=== PATIENT | female | born 1975 | race Caucasian/White ===

== ENCOUNTER 2025-06-19 14:14 | Observation (INO) ==
--- NOTE | 2025-06-19 15:27 | Emergency Department Note ---
Impression & Plan Leg wound, left, Cellulitis, Leg pain, left ED Provider Note CHIEF COMPLAINT: Left foot infection/wound HISTORY OF PRESENTING ILLNESS: The patient is a 49-year-old female with a H cerebral palsy, venous ulcers to lower extremities, lymphedema who presents to the emergency department via EMS due to left foot pain that began last night with burning and irritation. She reports continuously being treated for cellulitis of the left lower extremity and has followed up with wound care but has not seen them for a couple of months. She states that she completed a course of Bactrim about a week ago and has been changing the dressing daily. Yesterday she noticed some burning and irritation and last night when the dressing was taken off by her he noticed maggots and drainage from the wound. She denies fever, nausea, chills, chest pain, shortness of breath, abdominal pain, recent trauma or injury, calf pain. She has had no issues with the right lower extremity. REVIEW OF SYSTEMS: See HPI for pertinent positives and pertinent negatives. ALLERGIES: NKDA MEDICATIONS: See below PAST MEDICAL HISTORY: See below PHYSICAL EXAM: VITALS: Vitals are noted on the nurses note and reviewed by myself. Vital signs stable. GENERAL: 49-year-old female, lying in bed, left leg elevated and in a dressing, in no acute distress, nondiaphoretic, well-developed well-nourished. SKIN: Capillary refill less than 2 seconds. Erythema noted on the left lower extremity from the upper bellamy down to the toes. This area does appear to be cellulitis and is draining a fluid. There are no ulcerations noted. No maggots on exam. HEENT: Normocephalic. PERRLA. EOMI. Nares patent. Mucous membranes moist. Neck is supple without nuchal rigidity. HEART: Regular rate and rhythm without murmurs gallops or rubs. LUNGS: CTA BL without wheezes, rales or rhonchi. No retractions or accessory muscle use. ABDOMEN: Positive BS x 4. Normal tympanic percussion. Soft, nontender, without masses or organomegaly. No guarding or rebound tenderness. MUSCULOSKELETAL: Left lower extremity cellulitis and drainage noted. Chronic lymphedema bilaterally. Patient is able to wiggle her toes, move her ankle, and no calf pain on exam. Right lower extremity without significant finding. NEURO: Patient was alert and oriented to person place and time. Normal sensation on exam. No focal neurological deficits. DIFFERENTIAL DIAGNOSIS: Cellulitis, wound infection, osteomyelitis, chronic lymphedema, venous insufficiency, sepsis, among others. ED COURSE AND MEDICAL DECISION MAKING: HISTORY FROM INDEPENDENT HISTORIAN: The patient herself, her , and her son. MEDICATIONS GIVEN: Denies the need for pain or symptom management, 2 g Rocephin IV, vancomycin 1750 IV MONITOR: Continuous site monitor: Order was placed for continuous site monitor. INTERPRETATION OF LABS: I interpreted the labs with full lab results as below in the lab section of this note. Pertinent lab results discussed in the MDM section below. INTERPRETATION OF IMAGING: No images were obtained. ESCALATION OF CARE CONSIDERED: Escalation of care was considered after evaluating the patient and noticing a cellulitic appearing wound/edema of the left lower extremity that is draining fluid. When the patient arrived via EMS the nursing staff noted that it appears as if the patient had not been cleaned or changed for quiet some time. Patient has not followed up with wound care in months. The patient was started on IV antibiotics here in the emergency department and was admitted for further treatment. CONSULTATIONS: On-call [facility] hospitalist - Dr. More - Presented the patient to the provider and my concerns regarding her going home. The patient did fail a course of oral antibiotics and has had worsening pain, swelling, redness, and drainage from the area. I also discussed with him my concerns regarding the patient's home care as the nursing staff reported that it appears as if she had not been showered or changed recently. The provider agreed to evaluate the patient and admit to medicine. MDM SUMMARY: I evaluated the 49-year-old female who presents to the emergency department due to a left leg wound and pain. See HPI and physical exam above. IV access was established and labs were obtained. Patient denies the need for pain or symptom management in the meantime. A wound culture was obtained of the left lower extremity and foot. The patient was started on 2 g Rocephin and 20 mg/kg vancomycin. The wound does appear to be superficial and osteomyelitis is unlikely at this time. No leukocytosis WBC 8.90. RBC 4.25. Hemoglobin hematocrit 12.6/38.5. No electrolyte abnormality. No TANNER. Lactate 1.1. Procalcitonin normal 0.03. All laboratory results thoroughly reviewed with the patient. Vitals are stable and she is afebrile. I do believe that the patient would benefit from admission for IV antibiotics as she has not seen wound care in quite some time and failed outpatient Bactrim. The patient agrees to the outlined treatment plan and all of her questions were answered. I also discussed with the hospitalist the possibility of setting up a home health aide to assist in the patient's care upon discharge. They evaluated the patient and admitted her to medicine. DIAGNOSIS: Left leg wound, cellulitis, left leg pain The chart was completed utilizing Recommend Speech voice recognition software. Grammatical errors, random word insertions, pronoun errors, and incomplete sentences are an occasional consequence of this system due to software limitations, ambient noise, and hardware issues. Any formal questions or concerns about the content, text, or information contained within the body of this dictation should be directly addressed to the provider for clarification. 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 Cerebral palsy Surgical History Hx of tubal ligation Hx of section x2 Hx laparoscopic cholecystectomy Hx of wisdom tooth extraction Social History Smoking Status: Never smoker Hx Alcohol Use: No Hx Substance Use: No Preferred Language: Turkish Communication Ability: Effective Visual Impairment: Partially Limited Family Centered Specialist Required: No Beliefs That Will Affect Care: None marital status: Single Current Living Situation: Family and Significant Other current occupational status: disabled How many Children do You have: 2 Feels Safe at Home: Yes Diet: regular caffeine: Yes Dental Care, Regularly: No Physical Activity Frequency: Does not Exercise Do you think of yourself as: straight/heterosexual Gender Identity: Female Assistive Devices: Wheelchair Allergies Allergies Allergy/AdvReac Type Severity Reaction Status Date / Time No Known Allergies Allergy Verified 06/19/25 18:17 Home Meds Home Medications Medication Instructions Recorded Confirmed cholecalciferol (vitamin D3) 125 125 mcg PO DAILY 03/03/22 06/19/25 mcg (5,000 unit) capsule atorvastatin 20 mg tablet 20 mg PO DAILY 06/19/25 06/19/25 baclofen 10 mg tablet 10 mg PO TID PRN Pain 06/19/25 06/19/25 furosemide 40 mg tablet 40 mg PO DAILY 06/19/25 06/19/25 mirabegron 50 mg tablet,extended 50 mg PO DAILY 06/19/25 06/19/25 release 24 hr potassium chloride 20 mEq 20 meq PO DAILY 06/19/25 06/19/25 tablet,extended release(part/cryst) (Klor-Con M) Results & Data (ED) Vital Signs Vital Signs - 24 hr 06/19/25 14:37 06/19/25 15:35 06/19/25 15:43 Temperature 37 C 37 C Temperature Source Oral Oral Pulse Rate 100 H 86 Pulse Rate [Left Apical] 93 H Respiratory Rate 20 17 Respiratory Effort / Characteristics Non-Labored Spontaneous Respiratory Depth Normal Respiratory Pattern Regular Blood Pressure 145/86 H Blood Pressure [Right Arm] 150/92 H Blood Pressure Mean 105 Blood Pressure Mean [Right Arm] 111 Pulse Oximetry 100 99 Oxygen Delivery Method Room Air Room Air Sepsis Recent Fever Within 48 Hours No Sepsis New/Unexplained Change in Mental Status No Sepsis Action Taken by Nursing No Action Required 06/19/25 16:06 06/19/25 17:03 06/19/25 18:15 Temperature Temperature Source Pulse Rate 94 H 89 109 H Pulse Rate [Left Apical] Respiratory Rate 23 21 23 Respiratory Effort / Characteristics Respiratory Depth Respiratory Pattern Blood Pressure 150/102 H Blood Pressure [Right Arm] Blood Pressure Mean 118 Blood Pressure Mean [Right Arm] Pulse Oximetry 98 98 99 Oxygen Delivery Method Room Air Room Air Room Air Sepsis Recent Fever Within 48 Hours Sepsis New/Unexplained Change in Mental Status Sepsis Action Taken by Nursing Laboratory Data 06/19/25 16:42 06/19/25 16:42 Lab Results 06/19/25 Range/Units 16:42 WBC 8.98 (4.8-10.8) K/ul RBC 4.25 (4.20-5.40) M/uL Hgb 12.6 (12.0-16.0) g/dl Hct 38.5 (37.0-47.0) % MCV 90.6 (80.0-100.0) fL MCH 29.6 (25.0-34.0) pg MCHC 32.7 (32.0-36.0) g/dL RDW Std Deviation 41.0 (36.4-46.3) fL RDW Coeff of Kelle 12.7 (11.5-14.5) % Plt Count 319 (130-400) K/uL MPV 10.5 (9.4-12.4) fL Immature Gran % (Auto) 0.3 % Neut % (Auto) 74.4 % Lymph % (Auto) 16.8 % [place] % (Auto) 7.1 % Eos % (Auto) 0.8 % Baso % (Auto) 0.6 % Neut # (Auto) 6.68 H (1.40-6.50) K/uL Lymph # (Auto) 1.51 (1.20-3.40) K/uL [place] # (Auto) 0.64 H (0.11-0.59) K/uL Eos # (Auto) 0.07 (0.00-0.50) K/uL Baso # (Auto) 0.05 (0.00-0.20) K/uL Immature Gran # (Auto) 0.03 (0.01-0.20) K/uL Sodium 139 (136-145) mmol/L Potassium 3.9 (3.5-5.1) mmol/L Chloride 103 (98-107) mmol/L Carbon Dioxide 26 (21-32) mmol/L Anion Gap 10 (3-11) BUN 8 (6-23) mg/dl Creatinine 0.68 (0.6-1.2) mg/dl Est Cr Clr Drug Dosing 96.9 ml/min eGFR 108.03 BUN/Creatinine Ratio 11.8 (10-20) Glucose 97 (70-99(Fasting)) mg/dl Lactate 1.1 (0.4-2.0) mmol/L Calcium 9.3 (8.6-10.3) mg/dl Total Bilirubin 0.8 (0.2-1.0) mg/dl AST 12 L (13-39) U/L ALT 13 (7-52) U/L Alkaline Phosphatase 89 (34-104) U/L Total Protein 7.9 (6.0-8.3) gm/dl Albumin 4.1 (3.4-5.0) gm/dl Globulin 3.8 (2.5-4.0) gm/dl Albumin/Globulin Ratio 1.1 (0.9-2) Procalcitonin 0.03 (0-0.5) ng/ml Administered Medications Atorvastatin Calcium (Atorvastatin 20 Mg Tab) 20 mg PO HS MIKE Stop: 07/19/25 20:59 Last Admin: 06/19/25 21:06 Dose: 20 mg Documented By: DELBERT Potassium Chloride (Potassium Chloride Crtab 20 Meq Tabcr) 20 meq PO DAILY MIKE Stop: 07/19/25 19:11 Last Admin: 06/19/25 20:59 Dose: 20 meq Documented By: DELBERT Discontinued Medications Ceftriaxone Sodium (Rocephin) 2,000 mg in 50 mls @ 100 mls/hr IV NOW STA Stop: 06/19/25 16:38 Last Infusion: 06/19/25 17:30 Dose: Infused Documented By: Admin: 06/19/25 16:56 Dose: 100 mls/hr Documented By: MARYURI Vancomycin HCl 1,750 mg/ (Sodium Chloride) 535 mls @ 200 mls/hr IV NOW ONE Stop: 06/19/25 18:49 Last Admin: 06/19/25 19:01 Dose: 200 mls/hr Documented By: DELBERT Cefazolin Sodium (Ancef 1000mg) 1,000 mg in 7.5 mls @ 2.5 mls/min IV Q8H MIKE Stop: 06/26/25 19:59 Last Admin: 06/19/25 21:06 Dose: 2.5 mls/min Documented By: DELBERT Cefazolin Sodium (Ancef 1000mg) 1,000 mg in 7.5 mls @ 2.5 mls/min IV ONE ONE; Protocol Stop: 06/19/25 21:17 Last Admin: 06/19/25 21:37 Dose: Not Given Documented By: ALLISON Ioversol (Optiray 320 125ml) 118 ml IV ONCE ONE Stop: 06/19/25 18:49 Last Admin: 06/19/25 18:53 Dose: 118 ml Documented By: [employer] Data Radiologist's Impression: Lower Extremity CT 06/19/25 18:25 EXAM: CT tib/fib RT w con CLINICAL HISTORY: R/O abscess, left leg, left foot cellulitis. TECHNIQUE: Contiguous axial CT images of the right tibia/fibula were obtained with intravenous contrast using 118 ml Optiary 320 mg/ml administered. Sagittal and coronal multiplanar reformats were acquired. One of the following dose reduction techniques were utilized for this exam: Automated exposure control, adjustment of the mA and/or kV according to patient size, and use of iterative reconstruction. COMPARISON: No prior studies available for comparison. FINDINGS: Bones: There is diffuse osseous demineralization. Normal alignment of the femur, tibia, and fibula, as well as the visualized ankle. No fractures or dislocations. High-riding patella with Insall-Salvati ratio of 1.5. Bony exostosis is seen in the medial femoral epicondyle. No suspicious lytic or sclerotic lesions. Joints and Articular Surfaces: There is narrowing of the medial femorotibial compartment more than the lateral compartment, with subchondral sclerosis of the medial and lateral tibial plateaus. No erosions, joint effusions, or abnormal enhancement. Soft Tissues: There is soft tissue swelling in the distal leg to the ankle joint, most significant in the anterior and lateral aspects with associated cutaneous and superficial fascial thickening. No evidence of enhancing abscess collection. Tendons and Ligaments: Intact and grossly unremarkable normal appearance of the tendons and ligaments. No evidence of significant tendinopathy or ligamentous injury. Muscles: There is diffuse fatty atrophy of the visualized musculature. Neurovascular Structures: Normal appearance and enhancement of the visualized neurovascular structures. No evidence of compression or abnormal enhancement. IMPRESSION: 1. Soft tissue swelling involving the soft tissues of the distal leg to the ankle joint, most significantly affecting the anterior and lateral aspects. No evidence of enhancing abscess collection. 2. Osteopenia. No evidence of acute fracture or dislocation. 3. Patella graciela. 4. Diffuse fatty atrophy of the visualized musculature. Electronically signed by Faraz Jones 06-19-2025 8:59 PM Aorta w/Runoff CTA 06/19/25 18:26 EXAM: CT ang AA runof w cally charles CLINICAL HISTORY: r/o PVD TECHNIQUE: CT angiography of the abdomen and pelvis was performed with and without intravenous contrast using with the following protocol: axial images, and reconstructed coronal and sagittal images. Non-contrast images were initially acquired, followed by contrast-enhanced images in arterial and venous phases. Intravenous contrast, 118 cc Optiray 320, was administered using automated injection techniques. Bolus tracking was employed to optimize arterial phase imaging. For CTA's we need the post-processing techniques that constitute a CTA study. Physicians must state in their dictation:"One of these 3D techniques was utilized: Maximum Intensity Pixel (MIP), 3D Reconstructed Images, Volume Rendered Images, Surface Shaded Rendering. "One of the following dose reduction techniques was utilized for this exam: Automated exposure control, adjustment of the mA and/or kV according to patient size, and use of iterative reconstruction." COMPARISON: No prior studies available for comparison FINDINGS: Abdominal Aorta: The abdominal aorta is normal in caliber, with no evidence of aneurysm, dissection, or significant atherosclerotic disease. Celiac Artery and Branches: The celiac artery and its branches (left gastric artery, splenic artery, common hepatic artery) are patent without stenosis or aneurysm. Superior Mesenteric Artery (SMA): The SMA is patent, with normal origin and course. No evidence of stenosis, aneurysm, or dissection. Renal Arteries: Both renal arteries are patent with no evidence of stenosis, occlusion, or aneurysm. Normal enhancement of renal parenchyma. Inferior Mesenteric Artery (LIUS): The LUIS is patent with no evidence of stenosis or occlusion. Pelvic Arteries: The iliac arteries (common, internal, and external) are patent bilaterally without evidence of stenosis, occlusion, or aneurysm. Small calcified plaques in the bilateral common and internal iliac arteries without significant stenosis. Lower Extremity Arteries: The bilateral common femoral, deep and superior femoral, popliteal, peroneal, tibial and dorsalis pedis arteries are normally opacified. Other Abdominal and Pelvic Vessels: The portal vein, splenic vein, and superior mesenteric vein are patent with normal enhancement. [Describe any abnormalities, such as thrombosis or varices.] Solid Organs: Liver: Normal in size and shape, with decreased density likely steatosis. Small cyst in the dome of the right lobe. Normal enhancement pattern. Gallbladder and Biliary System: The Gallbladder is not seen. Bile ducts are normal in caliber. Pancreas: Normal in size and density. No masses or cysts. Normal enhancement. Spleen: Normal in size and density. No focal lesions. Normal enhancement. Kidneys and Adrenal Glands: Normal in size and shape. No renal masses or hydronephrosis. Adrenal glands are unremarkable. Normal enhancement. Bowel: No evidence of bowel obstruction or significant bowel wall thickening. No abnormal enhancement. Peritoneal and Retroperitoneal Structures: No free fluid or abnormal fluid collections were identified within the abdomen or pelvis. No lymphadenopathy was noted. Uterus is unremarkable. A 3.0 x 3.8 cm left adnexal cyst. A small rim-enhancing cyst in the right ovary, likely a corpus luteum. Bones and Soft Tissues: No fractures or abnormal masses were identified. Subcutaneous edema in the bilateral ankles and feet with increased vascularities. Mild subcutaneous fat-stranding in the bilateral popliteal regions. IMPRESSION: No evidence of peripheral arterial occlusive diease in this CT study. Subcutaneous edema in the bilateral ankle and feet, with increased vascularities, suggest cellulitis. Mild subcutaneous fat-stranding in the bilateral popliteal regions. Other findings include hepatic steatosis with tiny cyst, and a 3.0 x 3.8 cm left adnexal cyst, likely ovarian. Electronically signed by Faraz Jones 06-19-2025 8:[address] 06/19/25 18:26 EXAM: CT foot LT w con CLINICAL HISTORY: Rule out abscess, osteomyelitis TECHNIQUE: CT scan of the left foot was performed with the administration of intravenous contrast 118 cc optiray 320 mg/ml was given as contrast. Axial images were obtained, with coronal and sagittal reformatted images reviewed. One of the following dose reduction techniques was utilized for this exam. Automated exposure control, adjustment of the mA and/or kV according to patient size, and use of iterative reconstruction. COMPARISON: None. FINDINGS: Soft Tissues: Extensive soft tissue edematous changes in form of subcutaneous fluid collection and fat stranding involving the visualized left lower leg, ankle and dorsum of foot. Skin thickening with irregularity is seen over the dorsum of foot. Bones: Ill-defined patchy lucencies in multiple tarsal bones with thinning of cortical margins and lucencies involving third to fifth heads of metatarsals, with few areas of patchy lucencies in the heads of first and second metatarsals, highly concerning for infection. Joints: Moderate intertarsal osteoarthritic changes. Additional Findings: No other significant findings are noted. IMPRESSION: 1. Ill-defined patchy lucencies in multiple tarsal bones with thinning of cortical margins and lucencies involving third to fifth heads of metatarsals, with few areas of patchy lucencies in the heads of first and second metatarsals, highly concerning for infection-osteomyelitis. 2. Extensive soft tissue edematous changes in form of subcutaneous fluid collection and fat stranding involving the visualized left lower leg, ankle and dorsum of foot. 3. Skin thickening with irregularity over the dorsum of foot. The above findings represent acute infectious etiology. No definite peripherally enhancing abscess detected at present study 4. Recommended contrast-enhanced MR examination for better evaluation Electronically signed by Faraz Jones 06-19-2025 9:05 PM Discharge Plan Visit Data Chief Complaint: Infection, Wound Stated Complaint: L foot ED Provider: Jayce Payne ED Midlevel Provider: Albertina Aceves Discharge Problem: Leg wound, left, Cellulitis, Leg pain, left Patient Disposition: Admitted As Inpatient Condition: Fair Discharge Instructions Interventions: ED Discharge Assessment Last Done: 06/19/25 19:12 Discharge Problem: Leg wound, left Qualifiers: Encounter type: initial encounter Qualified Code(s): S81.802A - Unspecified open wound, left lower leg, initial encounter Cellulitis Qualifiers: Site of cellulitis: extremity Site of cellulitis of extremity: lower extremity Laterality: left Qualified Code(s): L03.116 - Cellulitis of left lower limb
[2025-06-19] MEDS ORDERED: VANCOMYCIN CONSULT ACTIVE PRN (16:09)
[2025-06-19] MEDS: cefTRIAXone SODIUM 2,000 MG/50 ML BAG IV STA (16:56)
[2025-06-19 17:08] LABS: Hematocrit (blood only) 38.5 % (37.0-47.0); Hemoglobin 12.6 g/dl (12.0-16.0); Immature Granulocytes # (auto) 0.03 K/uL (0.01-0.20); Immature Granulocytes % (auto) 0.3 %; Mean Corpuscular Hemoglobin 29.6 pg (25.0-34.0); Mean Corpuscular Volume 90.6 fL (80.0-100.0); Platelet Count 319 K/uL (130-400); RDW Standard Deviation 41.0 fL (36.4-46.3); Red Blood Count 4.25 M/uL (4.20-5.40); White Blood Count 8.98 K/ul (4.8-10.8)
[2025-06-19 17:24] LABS: Alanine Aminotransferase 13.0 U/L (7-52); Albumin Globulin Ratio 1.1 (0.9-2); Alkaline Phosphatase 89.0 U/L (34-104); Anion Gap 10.0 (3-11); Bilirubin,Total 0.8 mg/dl (0.2-1.0); Blood Urea Nitrogen 8.0 mg/dl (6-23); Calcium 9.3 mg/dl (8.6-10.3); Carbon Dioxide 26.0 mmol/L (21-32); Chloride 103.0 mmol/L (98-107); Creatinine Clr Calc Pharmacy 96.9 ml/min; Globulin 3.8 gm/dl (2.5-4.0); Glucose 97.0 mg/dl (70-99(Fasting)); Potassium 3.9 mmol/L (3.5-5.1); Sodium 139.0 mmol/L (136-145); Total Protein 7.9 gm/dl (6.0-8.3)
--- NOTE | 2025-06-19 18:48 | History & Physical Report ---
Date of Service June 19, 2025 Assessment & Plan (1) Left leg cellulitis: (2) Venous ulcers of both lower extremities: (3) Cerebral palsy: (4) Leg wound, left: Plan Krystle is a 49 yo woman with PMH of chronic lypmphadema, MS, cerebral palsy, hypokalemia, lyme disease. she's been following with wound care for her lymphedema and s/p debridement in office in April. she was recommended f/u with Dr Ulloa for left GSV reflux. in addition, she's on injection for her MS. she's took bactrim for her left foot infection one weeks ago and continue to get worse. since 24-48 hours, her wound continue to get worse and came here for evaluation on physical exam, she's has significant swelling, erythema on the left leg into the knee, she s/p ceftriaxone and plan for IV cefazolin and IV vancomycin she will need inpatient wound care evaluation and she s/p CT leg and CT foot to r/o underlying abscess or osteomyelitis. 1. acute left leg and left foot cellulitis 2. chronic lymphedema 3. acute maggot infection of left foot 4. hx of MS, wheelchair bound since 4-5 years ago 5. cerebral palsy 6. chronic hypokalemia 7. hx of lyme disease 8. ovarian cysts 1. acute left leg and left foot cellulitis f/u on CT leg and CT foot, CTA to r/o PAD cefaozlin and vancomycin. 2. chronic lymphadema plan for IV bumex while she's here. wound care eval for dressing choice 3. acute maggot infection of left foot wound care evaluation 4. hx of MS, she's see Dr. Sanaz Tam at [facility] ocrelizudcb she's on baclofen 10mg TID was recommended vitaminD supplement. 5. chronic hypokalemia, kcl daily 6. recurrent UTI, she's on mybrtriq 50mg ER daily 7. HLD, lipitor 20mg qHS History of Present Illness Chief Complaint: left foot, left leg cellulitis , worsening since 24 hours ago taken bactrim for 6-7 days noticed maggot growing on the left foot Primary Care Provider: Blake Shah MD Krystle Scott is a 49 yo woman with PMH of lymphadema, MS, cerebral palsy, chronic spasticity, hypokalemia. lyme disease She follow with Dr. Sanaz Tam at [facility] for her MS, and on ocrelizumab every 6 months. however, she's been bedbound since 5 years ago she's was following with our wound care clinics for her venous ulcer. and in april, s/p debridement, at that time, leg was dressed with visco paste kerlix and 2 layer tubigrip and aquacel ag to open ulceration. per progress note, she's has reflux studies completed and thos show left GSV amenable to ablation. since one week ago, she's been startede bactrim for her foot infection but no improvement. she's started noticing oozing discharge and worsening erythema and swelling to her left foot. she's was started by ED and s/p IV ceftriaxone. also concern about maggot coming out from her left foot. she will need inpatient admission for IV cefazolin, wound care. Allergies Allergy/AdvReac Type Severity Reaction Status Date / Time No Known Allergies Allergy Verified 06/19/25 18:17 Home Medications Medication Instructions Recorded Confirmed Type cholecalciferol (vitamin D3) 125 125 mcg PO DAILY 03/03/22 06/19/25 History mcg (5,000 unit) capsule atorvastatin 20 mg tablet 20 mg PO DAILY 06/19/25 06/19/25 History baclofen 10 mg tablet 10 mg PO TID PRN Pain 06/19/25 06/19/25 History furosemide 40 mg tablet 40 mg PO DAILY 06/19/25 06/19/25 History mirabegron 50 mg tablet,extended 50 mg PO DAILY 06/19/25 06/19/25 History release 24 hr potassium chloride 20 mEq 20 meq PO DAILY 06/19/25 06/19/25 History tablet,extended release(part/cryst) (Klor-Con M) Past Med/Surg History Problem List (Updated 06/19/25 @ 18:48 by Celina More DO) Left leg cellulitis Leg pain, left (Acute) Cellulitis (Acute) Leg wound, left (Acute) Lymphedema (Chronic) Venous ulcers of both lower extremities (Acute) Cerebral palsy (Chronic) Blind right eye (Chronic) [place] teeth extracted (Chronic) S/P tubal ligation (Chronic) S/P endometrial ablation (Chronic) S/P cholecystectomy (Chronic) Knee pain (Acute) Medical History Edema, unspecified Multiple sclerosis, primary chronic progressive Elevated liver enzymes Hypokalemia Hypertension 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 Cerebral palsy Surgical History Hx of tubal ligation Hx of section x2 Hx laparoscopic cholecystectomy Hx of wisdom tooth extraction Social History Smoking Status: Never smoker Hx Alcohol Use: No Hx Substance Use: No Preferred Language: Burmese Communication Ability: Effective Visual Impairment: Partially Limited Overage Shortage And Damage Clerk Required: No Beliefs That Will Affect Care: None marital status: Single Current Living Situation: Family and Significant Other current occupational status: disabled How many Children do You have: 2 Feels Safe at Home: Yes Diet: regular caffeine: Yes Dental Care, Regularly: No Physical Activity Frequency: Does not Exercise Do you think of yourself as: straight/heterosexual Gender Identity: Female Assistive Devices: Wheelchair Review of Systems Review of Systems: Constitutional: No Weight Change, No Fever, No Chills, No Night Sweats, No Fatigue, No Malaise Cardiovascular: No Chest Pain, No SOB, No PND, No Dyspnea on Exertion, No Orthopnea, No Claudication, No Palpitations Respiratory: No Cough, No Sputum, No Wheezing, No Smoke Exposure, No Dyspnea Gastrointestinal: No Nausea, No Vomiting, No Diarrhea, No Constipation, No Pain, No Heartburn, No Anorexia, No Dysphagia, No Hematochezia, No Melena, Genitourinary: + for recurrent UTI Musculoskeletal: + for chronic lymphadema; + for left foot infection Skin: + for erythema Neuro: + for MS; + for chronic spasticity; + for wheelchair bound. Psych: No Anxiety/Panic, No Depression, No Insomnia, No Personality Changes, No Delusions, No Rumination, No SI/HI/AH/VH, No Social Issues, No Memory Changes, No Violence/Abuse Hx., No Eating Concerns Endocrine: No Polyuria, No Polydipsia, No Temperature Intolerance Physical Exam Physical Exam: VITALS: Reviewed. WEIGHT/BMI reviewed. GEN: chronically ill -Head: NC/AT; NECK: Supple, with no masses. CV: RRR, no m/r/g. LUNGS: CTAB, no w/r/c. ABD: Soft, NT/ND, NBS, no masses or organomegaly. : N/A SKIN: + for erythmea in the left leg and left foot; + for swelling; no discharge appreciated; non-tender MSK: + for chronic lymphedema of both leg EXT: + for edema NEURO: AAOx3 . Results & Data Results & Data Vital Signs (Past 12 Hours) Vital Signs Temp Pulse Pulse Resp BP BP Pulse Ox 06/19/25 17:03 89 21 98 06/19/25 16:06 94 H 23 150/102 H 98 06/19/25 15:43 86 06/19/25 15:35 37 C 93 H 17 150/92 H 99 06/19/25 14:37 37 C 100 H 20 145/86 H 100 O2 Del Method 06/19/25 17:03 Room Air 06/19/25 16:06 Room Air 06/19/25 15:43 06/19/25 15:35 Room Air 06/19/25 14:37 Room Air Laboratory Results Laboratory Results - last 72 hr 06/19/25 16:42 WBC 8.98 RBC 4.25 Hgb 12.6 Hct 38.5 MCV 90.6 MCH 29.6 MCHC 32.7 RDW Std Deviation 41.0 RDW Coeff of Kelle 12.7 Plt Count 319 MPV 10.5 Immature Gran % (Auto) 0.3 Neut % (Auto) 74.4 Lymph % (Auto) 16.8 [place] % (Auto) 7.1 Eos % (Auto) 0.8 Baso % (Auto) 0.6 Neut # (Auto) 6.68 H Lymph # (Auto) 1.51 [place] # (Auto) 0.64 H Eos # (Auto) 0.07 Baso # (Auto) 0.05 Immature Gran # (Auto) 0.03 Sodium 139 Potassium 3.9 Chloride 103 Carbon Dioxide 26 Anion Gap 10 BUN 8 Creatinine 0.68 Est Cr Clr Drug Dosing 96.9 eGFR 108.03 BUN/Creatinine Ratio 11.8 Glucose 97 Lactate 1.1 Calcium 9.3 Total Bilirubin 0.8 AST 12 L ALT 13 Alkaline Phosphatase 89 Total Protein 7.9 Albumin 4.1 Globulin 3.8 Albumin/Globulin Ratio 1.1 Procalcitonin 0.03 Medications Administered Current Inpatient Medications Enoxaparin Sodium (Enoxaparin Inj 40 Mg/0.4 Ml Syr) 40 mg SQ QAM MIKE Stop: 07/20/25 08:59 Vancomycin HCl 1,750 mg/ (Sodium Chloride) 535 mls @ 200 mls/hr IV NOW ONE Stop: 06/19/25 18:49 Cefazolin Sodium (Ancef 1000mg) 1,000 mg in 7.5 mls @ 2.5 mls/min IV Q8H IMKE Stop: 06/26/25 18:29 Miscellaneous Information (Vancomycin Consult Active) 1 each N/A UD PRN PRN Reason: Consult Stop: 07/19/25 16:08 PG Care Time/CCT Total # of Minutes Spent Total Time Spent with Patient: Total time spent is greater than 50% in coordination of care (as documented) at patient's floor/unit and/or counseling patient: Coding Level of Care Code 87386 INT INP/OBS CARE 2/55MIN Diagnoses Left leg cellulitis L03.116 Venous ulcers of both lower extremities I83.019; I83.029; L97.919; L97.929 Cerebral palsy G80.9 Leg wound, left S81.802A Encounter type: initial encounter Time Spent (min) 55 (4) Leg wound, left Encounter type: initial encounter Qualified Code(s): S81.802A - Unspecified open wound, left lower leg, initial encounter
[2025-06-19] MEDS: OPTIRAY 320 125ml IV ONE (18:53)
[2025-06-19] MEDS: VANCOMYCIN HCL 1,750 MG in SODIUM CHLORIDE 0.9% 500 ML IV ONE (19:01)
--- NOTE | 2025-06-19 20:43 | CT Scan Report ---
EXAM: CT ang RONEY tru charles CLINICAL HISTORY: r/o PVD TECHNIQUE: CT angiography of the abdomen and pelvis was performed with and without intravenous contrast using with the following protocol: axial images, and reconstructed coronal and sagittal images. Non-contrast images were initially acquired, followed by contrast-enhanced images in arterial and venous phases. Intravenous contrast, 118 cc Optiray 320, was administered using automated injection techniques. Bolus tracking was employed to optimize arterial phase imaging. For CTA's we need the post-processing techniques that constitute a CTA study. Physicians must state in their dictation:"One of these 3D techniques was utilized: Maximum Intensity Pixel (MIP), 3D Reconstructed Images, Volume Rendered Images, Surface Shaded Rendering. "One of the following dose reduction techniques was utilized for this exam: Automated exposure control, adjustment of the mA and/or kV according to patient size, and use of iterative reconstruction." COMPARISON: No prior studies available for comparison FINDINGS: Abdominal Aorta: The abdominal aorta is normal in caliber, with no evidence of aneurysm, dissection, or significant atherosclerotic disease. Celiac Artery and Branches: The celiac artery and its branches (left gastric artery, splenic artery, common hepatic artery) are patent without stenosis or aneurysm. Superior Mesenteric Artery (SMA): The SMA is patent, with normal origin and course. No evidence of stenosis, aneurysm, or dissection. Renal Arteries: Both renal arteries are patent with no evidence of stenosis, occlusion, or aneurysm. Normal enhancement of renal parenchyma. Inferior Mesenteric Artery (LUIS): The LUIS is patent with no evidence of stenosis or occlusion. Pelvic Arteries: The iliac arteries (common, internal, and external) are patent bilaterally without evidence of stenosis, occlusion, or aneurysm. Small calcified plaques in the bilateral common and internal iliac arteries without significant stenosis. Lower Extremity Arteries: The bilateral common femoral, deep and superior femoral, popliteal, peroneal, tibial and dorsalis pedis arteries are normally opacified. Other Abdominal and Pelvic Vessels: The portal vein, splenic vein, and superior mesenteric vein are patent with normal enhancement. [Describe any abnormalities, such as thrombosis or varices.] Solid Organs: Liver: Normal in size and shape, with decreased density likely steatosis. Small cyst in the dome of the right lobe. Normal enhancement pattern. Gallbladder and Biliary System: The Gallbladder is not seen. Bile ducts are normal in caliber. Pancreas: Normal in size and density. No masses or cysts. Normal enhancement. Spleen: Normal in size and density. No focal lesions. Normal enhancement. Kidneys and Adrenal Glands: Normal in size and shape. No renal masses or hydronephrosis. Adrenal glands are unremarkable. Normal enhancement. Bowel: No evidence of bowel obstruction or significant bowel wall thickening. No abnormal enhancement. Peritoneal and Retroperitoneal Structures: No free fluid or abnormal fluid collections were identified within the abdomen or pelvis. No lymphadenopathy was noted. Uterus is unremarkable. A 3.0 x 3.8 cm left adnexal cyst. A small rim-enhancing cyst in the right ovary, likely a corpus luteum. Bones and Soft Tissues: No fractures or abnormal masses were identified. Subcutaneous edema in the bilateral ankles and feet with increased vascularities. Mild subcutaneous fat-stranding in the bilateral popliteal regions. IMPRESSION: No evidence of peripheral arterial occlusive diease in this CT study. Subcutaneous edema in the bilateral ankle and feet, with increased vascularities, suggest cellulitis. Mild subcutaneous fat-stranding in the bilateral popliteal regions. Other findings include hepatic steatosis with tiny cyst, and a 3.0 x 3.8 cm left adnexal cyst, likely ovarian. Electronically signed by Faraz Jones 06-19-2025 8:42 PM
[2025-06-19] MEDS: POTASSIUM CHLORIDE CRTAB 20 MEQ TABCR PO SCH (20:59)
--- NOTE | 2025-06-19 20:59 | CT Scan Report ---
EXAM: CT tib/fib RT w con CLINICAL HISTORY: R/O abscess, left leg, left foot cellulitis. TECHNIQUE: Contiguous axial CT images of the right tibia/fibula were obtained with intravenous contrast using 118 ml Optiary 320 mg/ml administered. Sagittal and coronal multiplanar reformats were acquired. One of the following dose reduction techniques were utilized for this exam: Automated exposure control, adjustment of the mA and/or kV according to patient size, and use of iterative reconstruction. COMPARISON: No prior studies available for comparison. FINDINGS: Bones: There is diffuse osseous demineralization. Normal alignment of the femur, tibia, and fibula, as well as the visualized ankle. No fractures or dislocations. High-riding patella with Insall-Salvati ratio of 1.5. Bony exostosis is seen in the medial femoral epicondyle. No suspicious lytic or sclerotic lesions. Joints and Articular Surfaces: There is narrowing of the medial femorotibial compartment more than the lateral compartment, with subchondral sclerosis of the medial and lateral tibial plateaus. No erosions, joint effusions, or abnormal enhancement. Soft Tissues: There is soft tissue swelling in the distal leg to the ankle joint, most significant in the anterior and lateral aspects with associated cutaneous and superficial fascial thickening. No evidence of enhancing abscess collection. Tendons and Ligaments: Intact and grossly unremarkable normal appearance of the tendons and ligaments. No evidence of significant tendinopathy or ligamentous injury. Muscles: There is diffuse fatty atrophy of the visualized musculature. Neurovascular Structures: Normal appearance and enhancement of the visualized neurovascular structures. No evidence of compression or abnormal enhancement. IMPRESSION: 1. Soft tissue swelling involving the soft tissues of the distal leg to the ankle joint, most significantly affecting the anterior and lateral aspects. No evidence of enhancing abscess collection. 2. Osteopenia. No evidence of acute fracture or dislocation. 3. Patella graciela. 4. Diffuse fatty atrophy of the visualized musculature. Electronically signed by Faraz Jones 06-19-2025 8:59 PM
[2025-06-19] MEDS: ATORVASTATIN 20 MG TAB PO SCH (21:06)
--- NOTE | 2025-06-19 21:06 | CT Scan Report ---
EXAM: CT foot LT w con CLINICAL HISTORY: Rule out abscess, osteomyelitis TECHNIQUE: CT scan of the left foot was performed with the administration of intravenous contrast 118 cc optiray 320 mg/ml was given as contrast. Axial images were obtained, with coronal and sagittal reformatted images reviewed. One of the following dose reduction techniques was utilized for this exam. Automated exposure control, adjustment of the mA and/or kV according to patient size, and use of iterative reconstruction. COMPARISON: None. FINDINGS: Soft Tissues: Extensive soft tissue edematous changes in form of subcutaneous fluid collection and fat stranding involving the visualized left lower leg, ankle and dorsum of foot. Skin thickening with irregularity is seen over the dorsum of foot. Bones: Ill-defined patchy lucencies in multiple tarsal bones with thinning of cortical margins and lucencies involving third to fifth heads of metatarsals, with few areas of patchy lucencies in the heads of first and second metatarsals, highly concerning for infection. Joints: Moderate intertarsal osteoarthritic changes. Additional Findings: No other significant findings are noted. IMPRESSION: 1. Ill-defined patchy lucencies in multiple tarsal bones with thinning of cortical margins and lucencies involving third to fifth heads of metatarsals, with few areas of patchy lucencies in the heads of first and second metatarsals, highly concerning for infection-osteomyelitis. 2. Extensive soft tissue edematous changes in form of subcutaneous fluid collection and fat stranding involving the visualized left lower leg, ankle and dorsum of foot. 3. Skin thickening with irregularity over the dorsum of foot. The above findings represent acute infectious etiology. No definite peripherally enhancing abscess detected at present study 4. Recommended contrast-enhanced MR examination for better evaluation Electronically signed by Faraz Jones 06-19-2025 9:05 PM
--- NOTE | 2025-06-19 23:03 | Nuclear Medicine Report ---
Exam(s): NM VQ EXAM: NM Lung Perfusion Scan CLINICAL HISTORY: Reason for exam: tachycardia. TECHNIQUE: Nuclear Medicine perfusion images of the lungs were obtained in multiple projections following injection of Tc99m MAA. COMPARISON: CT angiogram and runoff from 06/19/2025 FINDINGS: Perfusion: Unremarkable. No peripheral wedge-shaped perfusion defects are seen to suggest pulmonary embolism. IMPRESSION: No peripheral wedge-shaped perfusion defects are seen to suggest pulmonary embolism. Electronically signed by: Neil Patterson MD 06/19/25 23:01 PM
[2025-06-20] MEDS: BACLOFEN 10 MG TAB PO PRN (03:27)
[2025-06-20 07:54] LABS: Hematocrit (blood only) 34.1 % (37.0-47.0); Hemoglobin 11.2 g/dl (12.0-16.0); Mean Corpuscular Hemoglobin 29.9 pg (25.0-34.0); Mean Corpuscular Volume 90.9 fL (80.0-100.0); Platelet Count 298 K/uL (130-400); RDW Standard Deviation 40.9 fL (36.4-46.3); Red Blood Count 3.75 M/uL (4.20-5.40); White Blood Count 8.90 K/ul (4.8-10.8)
[2025-06-20 08:15] LABS: Alanine Aminotransferase 9.0 U/L (7-52); Albumin Globulin Ratio 1.1 (0.9-2); Alkaline Phosphatase 74.0 U/L (34-104); Anion Gap 7.0 (3-11); Bilirubin,Total 0.5 mg/dl (0.2-1.0); Blood Urea Nitrogen 6.0 mg/dl (6-23); Calcium 8.3 mg/dl (8.6-10.3); Carbon Dioxide 25.0 mmol/L (21-32); Chloride 107.0 mmol/L (98-107); Creatinine Clr Calc Pharmacy 103.9 ml/min; Globulin 3.0 gm/dl (2.5-4.0); Glucose 99.0 mg/dl (70-99(Fasting)); Potassium 3.9 mmol/L (3.5-5.1); Sodium 139.0 mmol/L (136-145); Total Protein 6.4 gm/dl (6.0-8.3)
[2025-06-20] MEDS: CHOLECALCIFEROL 125 MCG (5,000 UNITS) TAB PO SCH (09:41)
[2025-06-20] MEDS: ENOXAPARIN INJ 40 MG/0.4 ML SYR SQ SCH (09:41)
[2025-06-20] MEDS: VIBEGRON 75 MG TAB PO SCH (09:48)
--- NOTE | 2025-06-20 09:53 | Hospitalist Progress Note ---
Date of Service June 20, 2025 Assessment & Plan (1) Left leg cellulitis: (2) Venous ulcers of both lower extremities: (3) Cerebral palsy: (4) Leg wound, left: Plan Krystle Scott is a 49 yo woman with PMH of chronic lymphedema, MS (on injection), cerebral palsy, hypokalemia, lyme disease. she's been following with wound care for her lymphedema and s/p debridement in April. she was recommended f/u with Dr Ulloa for left GSV reflux. she's took bactrim for her left foot infection one weeks ago and continue to get worse. since 24-48 hours, her wound continue to get worse and went to ED on 06/19/2025 on physical exam, she's has significant swelling, erythema on the left leg into the knee, she s/p ceftriaxone and plan for IV cefazolin and IV vancomycin. her CT leg concern for osteomyelitis. CTA negative for PVD. she was started on cefazolin and vancomycin 1. acute left leg and left foot cellulitis 2. chronic lymphedema 3. acute maggot infection of left foot 4. hx of MS, wheelchair bound since 4-5 years ago 5. cerebral palsy 6. chronic hypokalemia 7. hx of lyme disease 8. ovarian cysts 1. acute left leg and left foot cellulitis CT sheppard concern for left foot osteomyelitis plan for MRI left foot ID and podiatry consulted cefaozlin and vancomycin. 2. chronic lymphadema plan for IV diuretics while she's here. wound care eval for dressing choice 3. acute maggot infection of left foot wound care evaluation 4. hx of MS, following neurologist, Dr. Sanaz Tam at [facility] ocrelizumab q6 months. she's on baclofen 10mg TID 5. chronic hypokalemia, kcl daily 6. recurrent UTI, she's on mybrtriq 50mg ER daily 7. HLD, lipitor 20mg qHS Admission and Anticipated Discharge Date Admission Date: June 19, 2025 Subjective she's been on cefazolin and vancomycin. her CT left leg concern for osteomyelitis ID, and podiatry consulted, plan for foot MRI no other distress. low standing lymphedema she is AAox3; and able to respond appropriate to question. Review of Systems Review of Systems: Constitutional: No Weight Change, No Fever, No Chills, No Night Sweats, No Fatigue, No Malaise Cardiovascular: No Chest Pain, No SOB, No PND, No Dyspnea on Exertion, No Orthopnea, No Claudication, No Edema, No Palpitations Respiratory: No Cough, No Sputum, No Wheezing, , No Dyspnea Gastrointestinal: No Nausea, No Vomiting, No Pain, No Heartburn, No Anorexia, No Dysphagia, No Hematochezia, No Melena Genitourinary: recurrent UTI. Musculoskeletal: + for lymphedema; + for left foot cellulitis. Neuro: + for MS; + for cerebral palsy; + for long staning leg weakness; spasticity; Psych: No Anxiety/Panic, No Depression, No Insomnia, No Personality Changes, No Delusions, No Rumination, Heme/Lymph: No Bruising, No Bleeding, No Transfusions History, No Lymphadenopathy Endocrine: no hx of diabetes. Physical Exam Physical Exam: VITALS: Reviewed. WEIGHT/BMI reviewed. GEN: chronically ill appearing. -Head: NC/AT; NECK: Supple, with no masses. CV: RRR, no m/r/g. LUNGS: CTAB, no w/r/c. ABD: Soft, NT/ND, NBS, no masses or organomegaly. : N/A SKIN: + for erythema; + for swelling; no bleeding. MSK: + for lymphadema NEURO: AAOx3. Results & Data Results & Data Vital Signs (Past 12 Hours) Vital Signs Temp Pulse Pulse Resp BP BP Pulse Ox 06/20/25 07:04 36.8 C 105 H 23 124/78 93 06/20/25 05:20 114 H 06/20/25 03:08 37.5 C 114 H 18 138/89 94 06/20/25 02:33 118 H 18 147/91 H 95 06/20/25 02:20 116 H 16 147/91 H 95 06/19/25 23:30 102 H 18 140/83 98 06/19/25 22:59 102 H O2 Del Method 06/20/25 07:04 Room Air 06/20/25 05:20 06/20/25 03:08 Room Air 06/20/25 02:33 Room Air 06/20/25 02:20 Room Air 06/19/25 23:30 Room Air 06/19/25 22:59 Laboratory Results Laboratory Results - last 72 hr 06/19/25 06/19/25 06/20/25 16:42 19:03 07:18 WBC 8.98 8.90 RBC 4.25 3.75 L Hgb 12.6 11.2 L Hct 38.5 34.1 L MCV 90.6 90.9 MCH 29.6 29.9 MCHC 32.7 32.8 RDW Std Deviation 41.0 40.9 RDW Coeff of Kelle 12.7 12.5 Plt Count 319 298 MPV 10.5 10.5 Immature Gran % (Auto) 0.3 Neut % (Auto) 74.4 Lymph % (Auto) 16.8 [place] % (Auto) 7.1 Eos % (Auto) 0.8 Baso % (Auto) 0.6 Neut # (Auto) 6.68 H Lymph # (Auto) 1.51 [place] # (Auto) 0.64 H Eos # (Auto) 0.07 Baso # (Auto) 0.05 Immature Gran # (Auto) 0.03 Sodium 139 139 Potassium 3.9 3.9 Chloride 103 107 Carbon Dioxide 26 25 Anion Gap 10 7 BUN 8 6 Creatinine 0.68 0.63 Est Cr Clr Drug Dosing 96.9 103.9 eGFR 108.03 110.04 BUN/Creatinine Ratio 11.8 9.5 L Glucose 97 99 Lactate 1.1 Calcium 9.3 8.3 L Total Bilirubin 0.8 0.5 AST 12 L 9 L ALT 13 9 Alkaline Phosphatase 89 74 Total Protein 7.9 6.4 Albumin 4.1 3.4 Globulin 3.8 3.0 Albumin/Globulin Ratio 1.1 1.1 Procalcitonin 0.03 Nasal Screen MRSA (PCR) Negative Diagnostic Findings Lower Extremity CT 06/19/25 18:25 EXAM: CT tib/fib RT w con CLINICAL HISTORY: R/O abscess, left leg, left foot cellulitis. TECHNIQUE: Contiguous axial CT images of the right tibia/fibula were obtained with intravenous contrast using 118 ml Optiary 320 mg/ml administered. Sagittal and coronal multiplanar reformats were acquired. One of the following dose reduction techniques were utilized for this exam: Automated exposure control, adjustment of the mA and/or kV according to patient size, and use of iterative reconstruction. COMPARISON: No prior studies available for comparison. FINDINGS: Bones: There is diffuse osseous demineralization. Normal alignment of the femur, tibia, and fibula, as well as the visualized ankle. No fractures or dislocations. High-riding patella with Insall-Salvati ratio of 1.5. Bony exostosis is seen in the medial femoral epicondyle. No suspicious lytic or sclerotic lesions. Joints and Articular Surfaces: There is narrowing of the medial femorotibial compartment more than the lateral compartment, with subchondral sclerosis of the medial and lateral tibial plateaus. No erosions, joint effusions, or abnormal enhancement. Soft Tissues: There is soft tissue swelling in the distal leg to the ankle joint, most significant in the anterior and lateral aspects with associated cutaneous and superficial fascial thickening. No evidence of enhancing abscess collection. Tendons and Ligaments: Intact and grossly unremarkable normal appearance of the tendons and ligaments. No evidence of significant tendinopathy or ligamentous injury. Muscles: There is diffuse fatty atrophy of the visualized musculature. Neurovascular Structures: Normal appearance and enhancement of the visualized neurovascular structures. No evidence of compression or abnormal enhancement. IMPRESSION: 1. Soft tissue swelling involving the soft tissues of the distal leg to the ankle joint, most significantly affecting the anterior and lateral aspects. No evidence of enhancing abscess collection. 2. Osteopenia. No evidence of acute fracture or dislocation. 3. Patella graciela. 4. Diffuse fatty atrophy of the visualized musculature. Electronically signed by Faraz Jones 06-19-2025 8:59 PM Aorta w/Runoff CTA 06/19/25 18:26 EXAM: CT luli charles CLINICAL HISTORY: r/o PVD TECHNIQUE: CT angiography of the abdomen and pelvis was performed with and without intravenous contrast using with the following protocol: axial images, and reconstructed coronal and sagittal images. Non-contrast images were initially acquired, followed by contrast-enhanced images in arterial and venous phases. Intravenous contrast, 118 cc Optiray 320, was administered using automated injection techniques. Bolus tracking was employed to optimize arterial phase imaging. For CTA's we need the post-processing techniques that constitute a CTA study. Physicians must state in their dictation:"One of these 3D techniques was utilized: Maximum Intensity Pixel (MIP), 3D Reconstructed Images, Volume Rendered Images, Surface Shaded Rendering. "One of the following dose reduction techniques was utilized for this exam: Automated exposure control, adjustment of the mA and/or kV according to patient size, and use of iterative reconstruction." COMPARISON: No prior studies available for comparison FINDINGS: Abdominal Aorta: The abdominal aorta is normal in caliber, with no evidence of aneurysm, dissection, or significant atherosclerotic disease. Celiac Artery and Branches: The celiac artery and its branches (left gastric artery, splenic artery, common hepatic artery) are patent without stenosis or aneurysm. Superior Mesenteric Artery (SMA): The SMA is patent, with normal origin and course. No evidence of stenosis, aneurysm, or dissection. Renal Arteries: Both renal arteries are patent with no evidence of stenosis, occlusion, or aneurysm. Normal enhancement of renal parenchyma. Inferior Mesenteric Artery (LUIS): The LUIS is patent with no evidence of stenosis or occlusion. Pelvic Arteries: The iliac arteries (common, internal, and external) are patent bilaterally without evidence of stenosis, occlusion, or aneurysm. Small calcified plaques in the bilateral common and internal iliac arteries without significant stenosis. Lower Extremity Arteries: The bilateral common femoral, deep and superior femoral, popliteal, peroneal, tibial and dorsalis pedis arteries are normally opacified. Other Abdominal and Pelvic Vessels: The portal vein, splenic vein, and superior mesenteric vein are patent with normal enhancement. [Describe any abnormalities, such as thrombosis or varices.] Solid Organs: Liver: Normal in size and shape, with decreased density likely steatosis. Small cyst in the dome of the right lobe. Normal enhancement pattern. Gallbladder and Biliary System: The Gallbladder is not seen. Bile ducts are normal in caliber. Pancreas: Normal in size and density. No masses or cysts. Normal enhancement. Spleen: Normal in size and density. No focal lesions. Normal enhancement. Kidneys and Adrenal Glands: Normal in size and shape. No renal masses or hydronephrosis. Adrenal glands are unremarkable. Normal enhancement. Bowel: No evidence of bowel obstruction or significant bowel wall thickening. No abnormal enhancement. Peritoneal and Retroperitoneal Structures: No free fluid or abnormal fluid collections were identified within the abdomen or pelvis. No lymphadenopathy was noted. Uterus is unremarkable. A 3.0 x 3.8 cm left adnexal cyst. A small rim-enhancing cyst in the right ovary, likely a corpus luteum. Bones and Soft Tissues: No fractures or abnormal masses were identified. Subcutaneous edema in the bilateral ankles and feet with increased vascularities. Mild subcutaneous fat-stranding in the bilateral popliteal regions. IMPRESSION: No evidence of peripheral arterial occlusive diease in this CT study. Subcutaneous edema in the bilateral ankle and feet, with increased vascularities, suggest cellulitis. Mild subcutaneous fat-stranding in the bilateral popliteal regions. Other findings include hepatic steatosis with tiny cyst, and a 3.0 x 3.8 cm left adnexal cyst, likely ovarian. Electronically signed by Faraz Jones 06-19-2025 8:[address] 06/19/25 18:26 EXAM: CT foot LT w con CLINICAL HISTORY: Rule out abscess, osteomyelitis TECHNIQUE: CT scan of the left foot was performed with the administration of intravenous contrast 118 cc optiray 320 mg/ml was given as contrast. Axial images were obtained, with coronal and sagittal reformatted images reviewed. One of the following dose reduction techniques was utilized for this exam. Automated exposure control, adjustment of the mA and/or kV according to patient size, and use of iterative reconstruction. COMPARISON: None. FINDINGS: Soft Tissues: Extensive soft tissue edematous changes in form of subcutaneous fluid collection and fat stranding involving the visualized left lower leg, ankle and dorsum of foot. Skin thickening with irregularity is seen over the dorsum of foot. Bones: Ill-defined patchy lucencies in multiple tarsal bones with thinning of cortical margins and lucencies involving third to fifth heads of metatarsals, with few areas of patchy lucencies in the heads of first and second metatarsals, highly concerning for infection. Joints: Moderate intertarsal osteoarthritic changes. Additional Findings: No other significant findings are noted. IMPRESSION: 1. Ill-defined patchy lucencies in multiple tarsal bones with thinning of cortical margins and lucencies involving third to fifth heads of metatarsals, with few areas of patchy lucencies in the heads of first and second metatarsals, highly concerning for infection-osteomyelitis. 2. Extensive soft tissue edematous changes in form of subcutaneous fluid collection and fat stranding involving the visualized left lower leg, ankle and dorsum of foot. 3. Skin thickening with irregularity over the dorsum of foot. The above findings represent acute infectious etiology. No definite peripherally enhancing abscess detected at present study 4. Recommended contrast-enhanced MR examination for better evaluation Electronically signed by Faraz Jones 06-19-2025 9:05 PM Pulmonary Perfusion Imaging 06/19/25 18:49 Exam(s): NM VQ EXAM: NM Lung Perfusion Scan CLINICAL HISTORY: Reason for exam: tachycardia. TECHNIQUE: Nuclear Medicine perfusion images of the lungs were obtained in multiple projections following injection of Tc99m MAA. COMPARISON: CT angiogram and runoff from 06/19/2025 FINDINGS: Perfusion: Unremarkable. No peripheral wedge-shaped perfusion defects are seen to suggest pulmonary embolism. IMPRESSION: No peripheral wedge-shaped perfusion defects are seen to suggest pulmonary embolism. Electronically signed by: Neil Patterson MD 06/19/25 23:01 PM Medications Administered Current Inpatient Medications Atorvastatin Calcium (Atorvastatin 20 Mg Tab) 20 mg PO HS MIKE Stop: 07/19/25 20:59 Last Admin: 06/19/25 21:06 Dose: 20 mg Baclofen (Baclofen 10 Mg Tab) 10 mg PO TID PRN PRN Reason: Pain Stop: 07/19/25 19:11 Last Admin: 06/20/25 03:27 Dose: 10 mg Enoxaparin Sodium (Enoxaparin Inj 40 Mg/0.4 Ml Syr) 40 mg SQ QAM MIKE Stop: 07/20/25 08:59 Last Admin: 06/20/25 09:41 Dose: 40 mg Furosemide (Furosemide 40 Mg/4 Ml Vial) 40 mg IV QAM MIKE Stop: 06/22/25 08:59 Cefazolin Sodium (Ancef 2000mg) 2,000 mg in 15 mls @ 3.75 mls/min IV Q8H MIKE Stop: 06/27/25 04:59 Last Admin: 06/20/25 05:23 Dose: 3.75 mls/min Potassium Chloride (Potassium Chloride Crtab 20 Meq Tabcr) 20 meq PO DAILY MIKE Stop: 07/19/25 19:11 Last Admin: 06/20/25 09:45 Dose: 20 meq Vibegron (Vibegron 75 Mg Tab) 75 mg PO DAILY MIKE Stop: 07/20/25 08:59 Last Admin: 06/20/25 09:48 Dose: 75 mg Vitamin D (Cholecalciferol 125 Mcg (5,000 Units) Tab) 125 mcg PO DAILY MIKE Stop: 07/20/25 08:59 Last Admin: 06/20/25 09:41 Dose: 125 mcg PG Care Time/CCT Total # of Minutes Spent Total Time Spent with Patient: Total time spent is greater than 50% in coordination of care (as documented) at patient's floor/unit and/or counseling patient: Coding Level of Care Code 20516 SUB INP/OBS CARE 2/35MIN Diagnoses Left leg cellulitis L03.116 Venous ulcers of both lower extremities I83.019; I83.029; L97.919; L97.929 Cerebral palsy G80.9 Leg wound, left S81.802A Encounter type: initial encounter Time Spent (min) 35 (4) Leg wound, left Encounter type: initial encounter Qualified Code(s): S81.802A - Unspecified open wound, left lower leg, initial encounter
--- NOTE | 2025-06-20 10:14 | Podiatry Consultation ---
Date of Consultation June 20, 2025 Assessment & Plan (1) Left leg cellulitis: (2) Leg pain, left: (3) Leg wound, left: Encounter type: initial encounter Qualified Code(s): S81.802A - Unspecified open wound, left lower leg, initial encounter (4) Cellulitis: Laterality: left Site of cellulitis: extremity Site of cellulitis of extremity: lower extremity Qualified Code(s): L03.116 - Cellulitis of left lower limb (5) Lymphedema: (6) Venous ulcers of both lower extremities: Plan Cellulitis left lower extremity, left leg wound - Left foot x-ray, CT, MRI results reviewed. CT evaluation with some concern for possible underlying osteomyelitis in the left foot however no radiographic signs of osteomyelitis noted in plain film radiographs were MRI of the left foot. Findings of MRI and x-ray are consistent with clinical picture with no deep extension to wounds of the left foot no exposed tendon capsule or bone. - Procalcitonin within normal limits. ESR and CRP elevated. No leukocytosis. -Left foot and leg dressing orders placed. Left toes: Cleanse left toes with normal sterile saline clean with 4 x 4 gauze and dressed with Aquacel Ag between the digits. Left dorsal foot: Cleanse with normal sterile saline dry, apply Silvadene followed by Xeroform, ABD pad. Left distal leg: Apply Xeroform to any areas of weeping followed by ABD pad. Dressed the lower extremity with Ashley from the base of the toes to the proximal calf. Apply 4 inch Clay to the foot and ankle and a 6 inch Clay from the ankle to the calf. Thank you for consulting podiatry to aid in the care of this patient. Will continue to follow her progress that she remains in the hospital and make arrangements for follow-up in the wound care center following discharge. History of Present Illness Reason for Consultation: Cellulitis of left lower extremity with left dorsal foot wound Attending Physician: Celina More DO History of Present Illness Patient is a 49-year-old female with past medical history significant for chronic bilateral lower extremity lymphedema, MS, cerebral palsy, hypokalemia and Lyme disease. She has a history of bilateral lower extremity ulceration secondary to Location of lymphedema. Mostly recently treated in the wound center [facility] for a right dorsal foot ulceration in 2021. Patient reports right foot ulceration has remained closed since her time of discharge from the wound center however she has had multiple issues with the left dorsal foot which continues to reulcerate intermittently. On time of admission she is completing a 1 week course of Bactrim which had not changed redness or swelling to the left foot. At home she has lymphedema pumps Tubigrip and Clay bandages which she uses to manage lower extremity edema. Reports discontinuing lymphedema pumps approximately 1 week ago once the infection started to get out of hand as she did not want to exacerbate the wound on the dorsum of her foot. She denies any history of injury to the dorsum of the foot that she can recall that would have created this wound. Reports pain to the dorsum of the foot most commonly with dressing changes. With worsening of the left lower extremity infection and pain patient reported to [facility] emergency department for further evaluation. She is initiated on IV cefazolin and vancomycin for management of cellulitis. Foot is cleansed and dressed by nursing team. Maggots are identified in the interspaces on admission however no maggots are noted to the left foot on exam this afternoon. X-ray CT and MRI of the left foot performed to evaluate possible abscess or osteomyelitis formation. Wound culture collected from the dorsum of the left foot. At time of visit sensitivities are pending and culture has grown Staph aureus. ESR and CRP are elevated. Procalcitonin within normal limits. Allergies Allergy/AdvReac Type Severity Reaction Status Date / Time No Known Allergies Allergy Verified 06/19/25 18:17 Home Medications Medication Instructions Recorded Confirmed Type cholecalciferol (vitamin D3) 125 125 mcg PO DAILY 03/03/22 06/19/25 History mcg (5,000 unit) capsule atorvastatin 20 mg tablet 20 mg PO DAILY 06/19/25 06/19/25 History baclofen 10 mg tablet 10 mg PO TID PRN Pain 06/19/25 06/19/25 History furosemide 40 mg tablet 40 mg PO DAILY 06/19/25 06/19/25 History mirabegron 50 mg tablet,extended 50 mg PO DAILY 06/19/25 06/19/25 History release 24 hr potassium chloride 20 mEq 20 meq PO DAILY 06/19/25 06/19/25 History tablet,extended release(part/cryst) (Baylee Shrama) Patient History Medical History Edema, unspecified Multiple sclerosis, primary chronic progressive Elevated liver enzymes Hypokalemia Hypertension 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 Cerebral palsy Surgical History Hx of tubal ligation Hx of section x2 Hx laparoscopic cholecystectomy Hx of wisdom tooth extraction Social History Smoking Status: Never smoker Hx Alcohol Use: No Hx Substance Use: No Preferred Language: Greenlandic Communication Ability: Effective Visual Impairment: Partially Limited Pit Manager Required: No Beliefs That Will Affect Care: None marital status: Single Current Living Situation: Family current occupational status: disabled How many Children do You have: 2 Feels Safe at Home: Yes Diet: regular caffeine: Yes Dental Care, Regularly: No Physical Activity Frequency: Does not Exercise Do you think of yourself as: straight/heterosexual Gender Identity: Female Assistive Devices: Bedside Commode, Scooter/Electric Scooter and Other Review of Systems Review of Systems: Reports pain in the left foot and leg. Denies nausea, vomiting, fever, chills. Patient has been wheelchair bound for the past 5 years secondary to MS. Physical Exam Physical Exam: Const: No signs of acute distress present. CV: Extremities: No cyanosis. Bilateral lower extremity edema left greater than right. Capillary refill time is less than 2 seconds all digits of the bilateral foot. Posterior tibial and dorsalis pedis pulses are palpable bilateral. Skin: Induration to the skin of the left lower extremity with cellulitis and wound to the dorsal foot. See lower extremity exam. Neuro: Sensation intact to light touch in all areas of the foot and ankle. Psych: Mood/Affect: Mood is normal. Affect is normal. Cognition: Orientation is intact to person, place and time. Focused lower extremity musculoskeletal exam: Leg: No pain with compression of the calf muscle. Feet: Right foot: +2 pitting edema to the right foot and ankle with induration of the skin dry skin patches to the dorsal foot and scabbed area laterally which patient reports is location of previous wound to the right foot which is resolved. No signs of local soft tissue infection. Left lower extremity: Erythema and edema to the distal two thirds of the left leg below the knee and left foot. Most notable ulceration sits just dorsal to the distal half of the second metatarsal is limited to breakdown of skin with mixed fibrotic slough to wound bed and weeping serous fluid. There are multiple excoriations to the dorsal aspect of the left foot weeping emilee-colored serous fluid. Patient has decreased edema to the left leg compared to time of admission. No actively draining wound to the left leg. Maceration to the interspaces of the digits of the left foot without open wound. Results & Data Vital Signs (Past 12 Hours) Vital Signs Temp Pulse Pulse Resp BP BP Pulse Ox 06/20/25 07:04 36.8 C 105 H 23 124/78 93 06/20/25 05:20 114 H 06/20/25 03:08 37.5 C 114 H 18 138/89 94 06/20/25 02:33 118 H 18 147/91 H 95 06/20/25 02:20 116 H 16 147/91 H 95 06/19/25 23:30 102 H 18 140/83 98 06/19/25 22:59 102 H O2 Del Method 06/20/25 07:04 Room Air 06/20/25 05:20 06/20/25 03:08 Room Air 06/20/25 02:33 Room Air 06/20/25 02:20 Room Air 06/19/25 23:30 Room Air 06/19/25 22:59 Laboratory Results White blood count 8.9 ESR 74 CRP 9.31 Procalcitonin 0.[address] left foot 06/19/2025 IMPRESSION: 1. Ill-defined patchy lucencies in multiple tarsal bones with thinning of cortical margins and lucencies involving third to fifth heads of metatarsals, with few areas of patchy lucencies in the heads of first and second metatarsals, highly concerning for infection-osteomyelitis. 2. Extensive soft tissue edematous changes in form of subcutaneous fluid collection and fat stranding involving the visualized left lower leg, ankle and dorsum of foot. 3. Skin thickening with irregularity over the dorsum of foot. The above findings represent acute infectious etiology. No definite peripherally enhancing abscess detected at present study 4. Recommended contrast-enhanced MR examination for better evaluation Electronically signed by Faraz Jones 06-19-2025 9:05 PM Dictated: 06/19/25 1844 X-ray left foot 06/20/2025: IMPRESSION: 1. No osteomyelitis seen by plain film. 2. Please see the CT report from yesterday. MRI left foot 06/20/2025: IMPRESSION: 1. No evidence of acute osteomyelitis. 2. Extensive cellulitis without abscess. 3. Hallux valgus with mild osteoarthritis. PG Care Time/CCT Total # of Minutes Spent Total Time Spent with Patient: Total time spent is greater than 50% in coordination of care (as documented) at patient's floor/unit and/or counseling patient: Coding Level of Care Code 25685 IN/OBS CONSULT LVL 4,60M Diagnoses Left leg cellulitis L03.116 Leg pain, left M79.605 Leg wound, left S81.802A Encounter type: initial encounter Cellulitis L03.116 Laterality: left Site of cellulitis: extremity Site of cellulitis of extremity: lower extremity Lymphedema I89.0 Venous ulcers of both lower extremities I83.019; I83.029; L97.919; L97.929
--- NOTE | 2025-06-20 11:47 | XRay Report ---
XR foot LT min 3V routine CLINICAL HISTORY: Cellulitis left foot COMPARISON: 06/19/2025 FINDINGS: There is diffuse soft tissue swelling most prominent dorsally. No acute fracture or disloc ation. No evidence of osteomyelitis seen by plain film. IMPRESSION: 1. No osteomyelitis seen by plain film. 2. Please see the CT report from yesterday. ACT 112: Negative or not required by law. Electronically signed by: Johnathan Mejia M.D. 06/20/2025 11:46 AM
[2025-06-20] MEDS: GADOBUTROL 65ML VIAL IV ONE (13:47)
[2025-06-20] MEDS: FUROSEMIDE 40 MG/4 ML VIAL IV SCH (14:43)
--- NOTE | 2025-06-20 14:43 | Infectious Disease Consult ---
Date of Consultation June 20, 2025 Assessment & Plan (1) Left leg cellulitis: (2) Leg wound, left: (3) Lymphedema: (4) Venous ulcers of both lower extremities: Plan Problems: #LLE cellulitis #Chronic lymphedema #Chronic lower extremity venous ulcers #MS on ocrelizumab Micro: 06/19 BCx x2: pending 06/19 L foot wound cx: Staph aureus Abx: Vanc 06/19 Ceftriaxone 06/19 Cefazolin 06/20 - present 49 yo F with lymphedema, lower extremity venous ulcers for which she follows with wound care, MS on ocrelizumab q6 months, cerebral palsy, chronic spasticity, bedbound since 5 years ago who presented on 06/19 with worsening L foot swelling, erythema, discharge. She reports she completed a course of TMP/SMX about 1 week prior. Her noticed maggots and drainage from her wound the day prior when her dressing was removed. Pt denies fevers, chills. On presentation, pt was afebrile, HR 100. Labs showed WBC 8.98. CT LLE with soft tissue swelling of the distal leg to the ankle joint, ill defined patchy lucencies in multiple tarsal bones with thinning of cortical margins and lucencies involving third to fifth heads of metatarsals with few patchy lucencies in heads of first and second metatarsals highly concerning for osteomyelitis. Extensive soft tissue edematous changes in form of subcutaneous fluid collection and fat stranding involving lower leg, ankle, dorsum of foot. Foot XR with no osteomyelitis by plain film. CTA RLE without evidence of peripheral arterial occlusive disease. Pt given vanc, ceftriaxone in the ED, then started on cefazolin. Podiatry consulted. MRI L foot pending. Recommendations: - Continue vancomycin at this time given Staph aureus growing in L foot wound culture (sensitivities pending). Ordered consult to pharmacy for vanc dosing - Can continue cefazolin for now - Follow-up L foot wound culture - follow-up L foot MRI Will continue to follow Consultation Information This patient recommendation is based on a telemedicine consult request which was completed asynchronously through chart review and information provided by the primary physician. The patient was not seen or examined today. The evaluation is consultative in nature and all patient care and treatment decisions can either be accepted or rejected by the patient's primary hospital-based treating physician using their own independent medical judgment for their patient. Picture Engraver contact information: Please call [facility] . (Phone Number For Physician Use Only) An e-consult was performed because the video cart is not functioning. Time Spent Reviewing Chart: 31+ minutes History of Present Illness Reason for Consultation: L foot cellulitis, ? osteomyelitis Attending Physician: Celina More DO History of Present Illness 49 yo F with lymphedema, lower extremity venous ulcers for which she follows with wound care, MS on ocrelizumab q6 months, cerebral palsy, chronic spasticity, bedbound since 5 years ago who presented on 06/19 with worsening L foot swelling, erythema, discharge. She reports she completed a course of TMP/SMX about 1 week prior. Her noticed maggots and drainage from her wound the day prior when her dressing was removed. Pt denies fevers, chills. On presentation, pt was afebrile, HR 100. Labs showed WBC 8.98. CT LLE with soft tissue swelling of the distal leg to the ankle joint, ill defined patchy lucencies in multiple tarsal bones with thinning of cortical margins and lucencies involving third to fifth heads of metatarsals with few patchy lucencies in heads of first and second metatarsals highly concerning for osteomyelitis. Extensive soft tissue edematous changes in form of subcutaneous fluid collection and fat stranding involving lower leg, ankle, dorsum of foot. Foot XR with no osteomyelitis by plain film. CTA RLE without evidence of peripheral arterial occlusive disease. Pt given vanc, ceftriaxone in the ED, then started on cefazolin. Podiatry consulted. MRI L foot pending. Allergies Allergy/AdvReac Type Severity Reaction Status Date / Time No Known Allergies Allergy Verified 06/19/25 18:17 Home Medications Medication Instructions Recorded Confirmed Type cholecalciferol (vitamin D3) 125 125 mcg PO DAILY 03/03/22 06/19/25 History mcg (5,000 unit) capsule atorvastatin 20 mg tablet 20 mg PO DAILY 06/19/25 06/19/25 History baclofen 10 mg tablet 10 mg PO TID PRN Pain 06/19/25 06/19/25 History furosemide 40 mg tablet 40 mg PO DAILY 06/19/25 06/19/25 History mirabegron 50 mg tablet,extended 50 mg PO DAILY 06/19/25 06/19/25 History release 24 hr potassium chloride 20 mEq 20 meq PO DAILY 06/19/25 06/19/25 History tablet,extended release(part/cryst) (Julisa-Hardeep Sharma) Patient History Medical History Edema, unspecified Multiple sclerosis, primary chronic progressive Elevated liver enzymes Hypokalemia Hypertension 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 Cerebral palsy Surgical History Hx of tubal ligation Hx of section x2 Hx laparoscopic cholecystectomy Hx of wisdom tooth extraction Social History Smoking Status: Never smoker Hx Alcohol Use: No Hx Substance Use: No Preferred Language: Omani Communication Ability: Effective Visual Impairment: Partially Limited 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 Beliefs That Will Affect Care: None marital status: Single Current Living Situation: Family current occupational status: disabled How many Children do You have: 2 Feels Safe at Home: Yes Diet: regular caffeine: Yes Dental Care, Regularly: No Physical Activity Frequency: Does not Exercise Do you think of yourself as: straight/heterosexual Gender Identity: Female Assistive Devices: Bedside Commode, Scooter/Electric Scooter and Other Results & Data Vital Signs (Past 12 Hours) Vital Signs Temp Pulse Pulse Resp BP Pulse Ox O2 Del Method 06/20/25 12:58 36.3 C L 85 21 140/88 100 Room Air 06/20/25 08:00 88 06/20/25 08:00 Room Air 06/20/25 07:04 36.8 C 105 H 23 124/78 93 Room Air 06/20/25 05:20 114 H 06/20/25 03:08 37.5 C 114 H 18 138/89 94 Room Air Laboratory Results Short CBC 06/19/25 06/20/25 Range/Units 16:42 07:18 WBC 8.98 8.90 (4.8-10.8) K/ul Hgb 12.6 11.2 L (12.0-16.0) g/dl Hct 38.5 34.1 L (37.0-47.0) % Plt Count 319 298 (130-400) K/uL BMP 06/19/25 06/20/25 16:42 07:18 Sodium 139 139 Potassium 3.9 3.9 Chloride 103 107 Carbon Dioxide 26 25 BUN 8 6 Creatinine 0.68 0.63 Glucose 97 99 Calcium 9.3 8.3 L Liver Function 06/19/25 06/20/25 Range/Units 16:42 07:18 Total Bilirubin 0.8 0.5 (0.2-1.0) mg/dl AST 12 L 9 L (13-39) U/L ALT 13 9 (7-52) U/L Alkaline Phosphatase 89 74 (34-104) U/L Albumin 4.1 3.4 (3.4-5.0) gm/dl Diagnostic Findings Lower Extremity CT 06/19/25 18:25 EXAM: CT tib/fib RT w con CLINICAL HISTORY: R/O abscess, left leg, left foot cellulitis. TECHNIQUE: Contiguous axial CT images of the right tibia/fibula were obtained with intravenous contrast using 118 ml Optiary 320 mg/ml administered. Sagittal and coronal multiplanar reformats were acquired. One of the following dose reduction techniques were utilized for this exam: Automated exposure control, adjustment of the mA and/or kV according to patient size, and use of iterative reconstruction. COMPARISON: No prior studies available for comparison. FINDINGS: Bones: There is diffuse osseous demineralization. Normal alignment of the femur, tibia, and fibula, as well as the visualized ankle. No fractures or dislocations. High-riding patella with Insall-Salvati ratio of 1.5. Bony exostosis is seen in the medial femoral epicondyle. No suspicious lytic or sclerotic lesions. Joints and Articular Surfaces: There is narrowing of the medial femorotibial compartment more than the lateral compartment, with subchondral sclerosis of the medial and lateral tibial plateaus. No erosions, joint effusions, or abnormal enhancement. Soft Tissues: There is soft tissue swelling in the distal leg to the ankle joint, most significant in the anterior and lateral aspects with associated cutaneous and superficial fascial thickening. No evidence of enhancing abscess collection. Tendons and Ligaments: Intact and grossly unremarkable normal appearance of the tendons and ligaments. No evidence of significant tendinopathy or ligamentous injury. Muscles: There is diffuse fatty atrophy of the visualized musculature. Neurovascular Structures: Normal appearance and enhancement of the visualized neurovascular structures. No evidence of compression or abnormal enhancement. IMPRESSION: 1. Soft tissue swelling involving the soft tissues of the distal leg to the ankle joint, most significantly affecting the anterior and lateral aspects. No evidence of enhancing abscess collection. 2. Osteopenia. No evidence of acute fracture or dislocation. 3. Patella graciela. 4. Diffuse fatty atrophy of the visualized musculature. Electronically signed by Faraz Jones 06-19-2025 8:59 PM Aorta w/Runoff CTA 06/19/25 18:26 EXAM: CT ang AA tru charles CLINICAL HISTORY: r/o PVD TECHNIQUE: CT angiography of the abdomen and pelvis was performed with and without intravenous contrast using with the following protocol: axial images, and reconstructed coronal and sagittal images. Non-contrast images were initially acquired, followed by contrast-enhanced images in arterial and venous phases. Intravenous contrast, 118 cc Optiray 320, was administered using automated injection techniques. Bolus tracking was employed to optimize arterial phase imaging. For CTA's we need the post-processing techniques that constitute a CTA study. Physicians must state in their dictation:"One of these 3D techniques was utilized: Maximum Intensity Pixel (MIP), 3D Reconstructed Images, Volume Rendered Images, Surface Shaded Rendering. "One of the following dose reduction techniques was utilized for this exam: Automated exposure control, adjustment of the mA and/or kV according to patient size, and use of iterative reconstruction." COMPARISON: No prior studies available for comparison FINDINGS: Abdominal Aorta: The abdominal aorta is normal in caliber, with no evidence of aneurysm, dissection, or significant atherosclerotic disease. Celiac Artery and Branches: The celiac artery and its branches (left gastric artery, splenic artery, common hepatic artery) are patent without stenosis or aneurysm. Superior Mesenteric Artery (SMA): The SMA is patent, with normal origin and course. No evidence of stenosis, aneurysm, or dissection. Renal Arteries: Both renal arteries are patent with no evidence of stenosis, occlusion, or aneurysm. Normal enhancement of renal parenchyma. Inferior Mesenteric Artery (LUIS): The LUIS is patent with no evidence of stenosis or occlusion. Pelvic Arteries: The iliac arteries (common, internal, and external) are patent bilaterally without evidence of stenosis, occlusion, or aneurysm. Small calcified plaques in the bilateral common and internal iliac arteries without significant stenosis. Lower Extremity Arteries: The bilateral common femoral, deep and superior femoral, popliteal, peroneal, tibial and dorsalis pedis arteries are normally opacified. Other Abdominal and Pelvic Vessels: The portal vein, splenic vein, and superior mesenteric vein are patent with normal enhancement. [Describe any abnormalities, such as thrombosis or varices.] Solid Organs: Liver: Normal in size and shape, with decreased density likely steatosis. Small cyst in the dome of the right lobe. Normal enhancement pattern. Gallbladder and Biliary System: The Gallbladder is not seen. Bile ducts are normal in caliber. Pancreas: Normal in size and density. No masses or cysts. Normal enhancement. Spleen: Normal in size and density. No focal lesions. Normal enhancement. Kidneys and Adrenal Glands: Normal in size and shape. No renal masses or hydronephrosis. Adrenal glands are unremarkable. Normal enhancement. Bowel: No evidence of bowel obstruction or significant bowel wall thickening. No abnormal enhancement. Peritoneal and Retroperitoneal Structures: No free fluid or abnormal fluid collections were identified within the abdomen or pelvis. No lymphadenopathy was noted. Uterus is unremarkable. A 3.0 x 3.8 cm left adnexal cyst. A small rim-enhancing cyst in the right ovary, likely a corpus luteum. Bones and Soft Tissues: No fractures or abnormal masses were identified. Subcutaneous edema in the bilateral ankles and feet with increased vascularities. Mild subcutaneous fat-stranding in the bilateral popliteal regions. IMPRESSION: No evidence of peripheral arterial occlusive diease in this CT study. Subcutaneous edema in the bilateral ankle and feet, with increased vascularities, suggest cellulitis. Mild subcutaneous fat-stranding in the bilateral popliteal regions. Other findings include hepatic steatosis with tiny cyst, and a 3.0 x 3.8 cm left adnexal cyst, likely ovarian. Electronically signed by Faraz Jones 06-19-2025 8:[address] 06/19/25 18:26 EXAM: CT foot LT w con CLINICAL HISTORY: Rule out abscess, osteomyelitis TECHNIQUE: CT scan of the left foot was performed with the administration of intravenous contrast 118 cc optiray 320 mg/ml was given as contrast. Axial images were obtained, with coronal and sagittal reformatted images reviewed. One of the following dose reduction techniques was utilized for this exam. Automated exposure control, adjustment of the mA and/or kV according to patient size, and use of iterative reconstruction. COMPARISON: None. FINDINGS: Soft Tissues: Extensive soft tissue edematous changes in form of subcutaneous fluid collection and fat stranding involving the visualized left lower leg, ankle and dorsum of foot. Skin thickening with irregularity is seen over the dorsum of foot. Bones: Ill-defined patchy lucencies in multiple tarsal bones with thinning of cortical margins and lucencies involving third to fifth heads of metatarsals, with few areas of patchy lucencies in the heads of first and second metatarsals, highly concerning for infection. Joints: Moderate intertarsal osteoarthritic changes. Additional Findings: No other significant findings are noted. IMPRESSION: 1. Ill-defined patchy lucencies in multiple tarsal bones with thinning of cortical margins and lucencies involving third to fifth heads of metatarsals, with few areas of patchy lucencies in the heads of first and second metatarsals, highly concerning for infection-osteomyelitis. 2. Extensive soft tissue edematous changes in form of subcutaneous fluid collection and fat stranding involving the visualized left lower leg, ankle and dorsum of foot. 3. Skin thickening with irregularity over the dorsum of foot. The above findings represent acute infectious etiology. No definite peripherally enhancing abscess detected at present study 4. Recommended contrast-enhanced MR examination for better evaluation Electronically signed by Faraz Jones 06-19-2025 9:05 PM Pulmonary Perfusion Imaging 06/19/25 18:49 Exam(s): NM VQ EXAM: NM Lung Perfusion Scan CLINICAL HISTORY: Reason for exam: tachycardia. TECHNIQUE: Nuclear Medicine perfusion images of the lungs were obtained in multiple projections following injection of Tc99m MAA. COMPARISON: CT angiogram and runoff from 06/19/2025 FINDINGS: Perfusion: Unremarkable. No peripheral wedge-shaped perfusion defects are seen to suggest pulmonary embolism. IMPRESSION: No peripheral wedge-shaped perfusion defects are seen to suggest pulmonary embolism. Electronically signed by: Neil Patterson MD 06/19/25 23:01 PM Foot X-Ray 06/20/25 09:08 XR foot LT min 3V routine CLINICAL HISTORY: Cellulitis left foot COMPARISON: 06/19/2025 FINDINGS: There is diffuse soft tissue swelling most prominent dorsally. No acute fracture or dislocation. No evidence of osteomyelitis seen by plain film. IMPRESSION: 1. No osteomyelitis seen by plain film. 2. Please see the CT report from yesterday. ACT 112: Negative or not required by law. Electronically signed by: Johnathan Mejia M.D. 06/20/2025 11:46 AM Medications Administered Current Inpatient Medications Acetaminophen/Butalbital/Caffeine (Butalbital/Acetamin/Caffeine Tab) 1 tab PO Q4H PRN PRN Reason: Headache Stop: 06/22/25 14:45 Last Admin: 06/20/25 15:34 Dose: 1 tab Atorvastatin Calcium (Atorvastatin 20 Mg Tab) 20 mg PO HS MIKE Stop: 07/19/25 20:59 Last Admin: 06/19/25 21:06 Dose: 20 mg Baclofen (Baclofen 10 Mg Tab) 10 mg PO TID PRN PRN Reason: Pain Stop: 07/19/25 19:11 Last Admin: 06/20/25 03:27 Dose: 10 mg Enoxaparin Sodium (Enoxaparin Inj 40 Mg/0.4 Ml Syr) 40 mg SQ QAM MIKE Stop: 07/20/25 08:59 Last Admin: 06/20/25 09:41 Dose: 40 mg Furosemide (Furosemide 40 Mg/4 Ml Vial) 40 mg IV QAM MIKE Stop: 06/22/25 08:59 Last Admin: 06/20/25 14:43 Dose: 40 mg Cefazolin Sodium (Ancef 2000mg) 2,000 mg in 15 mls @ 3.75 mls/min IV Q8H MIKE Stop: 06/27/25 04:59 Last Admin: 06/20/25 14:43 Dose: 3.75 mls/min Potassium Chloride (Potassium Chloride Crtab 20 Meq Tabcr) 20 meq PO DAILY MIKE Stop: 07/19/25 19:11 Last Admin: 06/20/25 09:45 Dose: 20 meq Vibegron (Vibegron 75 Mg Tab) 75 mg PO DAILY MIKE Stop: 07/20/25 08:59 Last Admin: 06/20/25 09:48 Dose: 75 mg Vitamin D (Cholecalciferol 125 Mcg (5,000 Units) Tab) 125 mcg PO DAILY MIKE Stop: 07/20/25 08:59 Last Admin: 06/20/25 09:41 Dose: 125 mcg (2) Leg wound, left Encounter type: initial encounter Qualified Code(s): S81.802A - Unspecified open wound, left lower leg, initial encounter
[2025-06-20] MEDS: BUTALBITAL/ACETAMIN/CAFFEINE TAB PO PRN (15:34)
[2025-06-20] MEDS ORDERED: VANCOMYCIN CONSULT ACTIVE PRN ×2 (15:52→16:24)
--- NOTE | 2025-06-20 16:20 | Magnetic Resonance Report ---
MR foot LT wo/w con HISTORY: 49 years-old Female r/o left foot osteomyelitis chronic left foot pain with clinical concer n for acute osteomyelitis. Open wound along the dorsal foot. COMPARISON: Foot radiographs of same day, CT left foot 06/19/2025 TECHNIQUE: Multiplanar multisequence MR of the left foot was obtained with and without IV contrast FINDINGS: Motion degraded exam. Extensive enhancing subcutaneous edema is noted most pronounced dorsally with a ssociated dermal thickening. Study is motion degraded. No drainable fluid collection is seen. Hallux valgus demonstrate approximately 33 degrees apex medial angulation. Mostly mild multifocal ost eoarthritis throughout the foot with moderate osteoarthritis of the talonavicular joint demonstrating chondromalacia with mild underlying subcortical cystic change. No acute fracture, dislocation or oss eous erosion. No acute tendon or ligamentous injury identified. There is diffuse atrophy of the muscu lature suggestive of chronic denervation change. No acute plantar plate injury. No enhancing mass les ions. IMPRESSION: 1. No evidence of acute osteomyelitis. 2. Extensive cellulitis without abscess. 3. Hallux valgus with mild osteoarthritis. ACT 112: Negative or not required by law. The above report was generated using voice recognition software. It may contain grammatical, syntax o r spelling errors. Electronically signed by: Norris Rabago M.D. 06/20/2025 4:18 PM
[2025-06-20] MEDS ORDERED: VANCOMYCIN HCL 1,000 MG/270 ML BAG IV ONE (16:24)
[2025-06-20] MEDS: VANCOMYCIN HCL 1,250 MG in SODIUM CHLORIDE 0.9% 250 ML IV SCH (18:05)
[2025-06-21 07:12] LABS: Hematocrit (blood only) 32.8 % (37.0-47.0); Hemoglobin 11.0 g/dl (12.0-16.0); Mean Corpuscular Hemoglobin 30.6 pg (25.0-34.0); Mean Corpuscular Volume 91.1 fL (80.0-100.0); Platelet Count 300 K/uL (130-400); RDW Standard Deviation 41.1 fL (36.4-46.3); Red Blood Count 3.60 M/uL (4.20-5.40); White Blood Count 5.99 K/ul (4.8-10.8)
[2025-06-21 07:28] LABS: Alanine Aminotransferase 6.0 U/L (7-52); Albumin Globulin Ratio 1.1 (0.9-2); Alkaline Phosphatase 68.0 U/L (34-104); Anion Gap 9.0 (3-11); Bilirubin,Total 0.3 mg/dl (0.2-1.0); Blood Urea Nitrogen 5.0 mg/dl (6-23); Calcium 8.4 mg/dl (8.6-10.3); Carbon Dioxide 25.0 mmol/L (21-32); Chloride 103.0 mmol/L (98-107); Creatinine Clr Calc Pharmacy 97.7 ml/min; Globulin 3.0 gm/dl (2.5-4.0); Glucose 174.0 mg/dl (70-99(Fasting)); Potassium 3.6 mmol/L (3.5-5.1); Sodium 137.0 mmol/L (136-145); Total Protein 6.4 gm/dl (6.0-8.3)
[2025-06-21 07:33] LABS: Hemoglobin A1C 5.6 % (4.5-5.6)
--- NOTE | 2025-06-21 08:10 | Infectious Disease Progress Nt ---
Date of Service June 21, 2025 Assessment & Plan (1) Left leg cellulitis: (2) Leg wound, left: (3) Lymphedema: (4) Venous ulcers of both lower extremities: Plan Problems: #LLE cellulitis #Chronic lymphedema #Chronic lower extremity venous ulcers #MS on ocrelizumab Micro: 06/19 BCx x2: NGTD 06/19 L foot wound cx: MSSA Abx: Vanc 06/19, 06/20-06/21 Ceftriaxone 06/19 Cefazolin 06/20 - present 49 yo F with lymphedema, lower extremity venous ulcers for which she follows with wound care, MS on ocrelizumab q6 months, cerebral palsy, chronic spasticity, bedbound since 5 years ago who presented on 06/19 with worsening L foot swelling, erythema, discharge, admitted with LLE cellulitis. She reports she completed a course of TMP/SMX about 1 week prior. Her noticed maggots and drainage from her wound the day prior when her dressing was removed. Pt denies fevers, chills. On presentation, pt was afebrile, HR 100. Labs showed WBC 8.98. CT LLE with soft tissue swelling of the distal leg to the ankle joint, ill defined patchy lucencies in multiple tarsal bones with thinning of cortical margins and lucencies involving third to fifth heads of metatarsals with few patchy lucencies in heads of first and second metatarsals highly concerning for osteomyelitis. Extensive soft tissue edematous changes in form of subcutaneous fluid collection and fat stranding involving lower leg, ankle, dorsum of foot. Foot XR with no osteomyelitis by plain film. CTA RLE without evidence of peripheral arterial occlusive disease. Pt given vanc, ceftriaxone in the ED, then started on cefazolin. Podiatry consulted. MRI L foot without osteomyelitis. Recommendations: - Discontinued vanc as wound culture is growing MSSA - Can continue cefazolin 2 g IV q8h and pending clinical improvement, transition to cefadroxil 500 mg PO q12h closer to discharge to complete a total 7-10 day course Will sign off. Admission and Anticipated Discharge Date Admission Date: June 19, 2025 Subjective This patient recommendation is based on a telemedicine consult request which was completed asynchronously through chart review and information provided by the primary physician. The patient was not seen or examined today. The evaluation is consultative in nature and all patient care and treatment decisions can either be accepted or rejected by the patient's primary hospital-based treating physician using their own independent medical judgment for their patient. An e-consult was performed because the video cart is not functioning. Time Spent Reviewing Chart: 11 - 20 minutes Afebrile without leukocytosis MRI without osteomyelitis Results & Data Vital Signs (Past 12 Hours) Vital Signs Temp Pulse Pulse Resp BP Pulse Ox O2 Del Method 06/21/25 07:46 36.6 C 93 H 17 135/78 92 Room Air 06/21/25 02:30 36.6 C 87 18 132/76 94 Room Air 06/20/25 22:39 36.6 C 78 18 126/77 96 Room Air 06/20/25 22:11 80 06/20/25 21:00 Room Air Laboratory Results Short CBC 06/21/25 Range/Units 06:36 WBC 5.99 (4.8-10.8) K/ul Hgb 11.0 L (12.0-16.0) g/dl Hct 32.8 L (37.0-47.0) % Plt Count 300 (130-400) K/uL BMP 06/20/25 06/21/25 07:18 06:36 Sodium 139 137 Potassium 3.9 3.6 Chloride 107 103 Carbon Dioxide 25 25 BUN 6 5 L Creatinine 0.63 0.67 Glucose 99 174 H Calcium 8.3 L 8.4 L Liver Function 06/20/25 06/21/25 Range/Units 07:18 06:36 Total Bilirubin 0.5 0.3 (0.2-1.0) mg/dl AST 9 L 7 L (13-39) U/L ALT 9 6 L (7-52) U/L Alkaline Phosphatase 74 68 (34-104) U/L Albumin 3.4 3.4 (3.4-5.0) gm/dl Medications Administered Current Inpatient Medications Acetaminophen/Butalbital/Caffeine (Butalbital/Acetamin/Caffeine Tab) 1 tab PO Q4H PRN PRN Reason: Headache Stop: 06/22/25 14:45 Last Admin: 06/20/25 15:34 Dose: 1 tab Atorvastatin Calcium (Atorvastatin 20 Mg Tab) 20 mg PO HS MIKE Stop: 07/19/25 20:59 Last Admin: 06/20/25 20:42 Dose: 20 mg Baclofen (Baclofen 10 Mg Tab) 10 mg PO TID PRN PRN Reason: Pain Stop: 07/19/25 19:11 Last Admin: 06/20/25 03:27 Dose: 10 mg Enoxaparin Sodium (Enoxaparin Inj 40 Mg/0.4 Ml Syr) 40 mg SQ QAM MIKE Stop: 07/20/25 08:59 Last Admin: 06/20/25 09:41 Dose: 40 mg Furosemide (Furosemide 40 Mg/4 Ml Vial) 40 mg IV QAM MIKE Stop: 06/22/25 08:59 Last Admin: 06/20/25 14:43 Dose: 40 mg Cefazolin Sodium (Ancef 2000mg) 2,000 mg in 15 mls @ 3.75 mls/min IV Q8H MIKE Stop: 06/27/25 04:59 Last Admin: 06/21/25 04:41 Dose: 3.75 mls/min Potassium Chloride (Potassium Chloride Crtab 20 Meq Tabcr) 20 meq PO DAILY MIKE Stop: 07/19/25 19:11 Last Admin: 06/20/25 09:45 Dose: 20 meq Silver Sulfadiazine (Silver Sulfadiazine 1% Cr 400 Gm Jar) 1 appln EXT DAILY MIKE Stop: 07/21/25 08:59 Vibegron (Vibegron 75 Mg Tab) 75 mg PO DAILY MIKE Stop: 07/20/25 08:59 Last Admin: 06/20/25 09:48 Dose: 75 mg Vitamin D (Cholecalciferol 125 Mcg (5,000 Units) Tab) 125 mcg PO DAILY MIKE Stop: 07/20/25 08:59 Last Admin: 06/20/25 09:41 Dose: 125 mcg (2) Leg wound, left Encounter type: initial encounter Qualified Code(s): S81.802A - Unspecified open wound, left lower leg, initial encounter
[2025-06-21] MEDS: BACLOFEN 10 MG TAB PO SCH (09:00)
[2025-06-21] MEDS: SILVER SULFADIAZINE 1% CR 400 GM JAR EXT SCH (10:34)
--- NOTE | 2025-06-21 12:55 | Podiatry Progress Note ---
Date of Service June 21, 2025 Assessment & Plan (1) Unspecified open wound, left foot, subsequent encounter: (2) Lymphedema: (3) Left leg cellulitis: (4) Leg pain, left: (5) Cellulitis: Plan Cellulitis left lower extremity, left dorsal foot wound: Case discussed with hospitalist team and nursing. Probable discharge to home with home health care 06/22/2025. - Left foot x-ray, CT, MRI results reviewed. CT evaluation with some concern for possible underlying osteomyelitis in the left foot however no radiographic signs of osteomyelitis noted in plain film radiographs were MRI of the left foot. Findings of MRI and x-ray are consistent with clinical picture with no deep extension to wounds of the left foot no exposed tendon capsule or bone. -Continue to elevate bilateral lower extremity while at rest. - Dressing change to the left lower extremity with resolved left leg wounds, significantly reduced edema to the left lower extremity, decreased erythema and edema to the left foot and decreased drainage from the left dorsal foot wounds. -Left foot and leg dressing orders updated 06/21/2025: Left dorsal foot: Cleanse with normal sterile saline dry, apply Silvadene followed by Aquacel Ag, ABD pad. Dress the lower extremity with Ashley from the base of the toes to the proximal calf. Apply 4 inch Clay to the foot and ankle and a 6 inch Clay from the ankle to the calf. Patient is to schedule a follow-up in the wound care center with any provider within 2 weeks of discharge. -Would benefit from Home health care for Thursday dressing changes, left lower extremity. Would likely benefit from transition to multilayer compression dressing when available. -Okay to resume use of compression garments to the right lower extremity and lymphedema pumps as prescribed when she returns home. Admission and Anticipated Discharge Date Admission Date: June 19, 2025 Subjective Patient seen resting comfortably in hospital bed having just completed lunch. Left lower extremity evaluated with Dr. More present in room. She denies pain to the left lower extremity at baseline. Denies nausea vomiting fever chills. Anticipating discharge likely 06/22/2025 with plan for home health care for every other day dressing change. Review of Systems Review of Systems: Denies nausea vomiting fever chills. Denies pain in the left lower extremity at baseline. Physical Exam Physical Exam: Const: No signs of acute distress present. CV: Extremities: No cyanosis. Bilateral lower extremity edema left greater than right. Capillary refill time is less than 2 seconds all digits of the bilateral foot. Posterior tibial and dorsalis pedis pulses are palpable bilateral. Skin: Induration to the skin of the left lower extremity with cellulitis and wound to the dorsal foot. See lower extremity exam. Neuro: Sensation intact to light touch in all areas of the foot and ankle. Psych: Mood/Affect: Mood is normal. Affect is normal. Cognition: Orientation is intact to person, place and time. Focused lower extremity musculoskeletal exam: Patient is wheelchair-bound with semireducible contracture of the bilateral lower extremity the level of the knee. Heel protecting pads in place bilateral. Leg: No pain with compression of the calf muscle. Feet: Right foot: +1 pitting edema to the right foot and ankle with induration of the skin dry skin patches to the dorsal foot and scabbed area laterally which patient reports is location of previous wound to the right foot which is resolved. No signs of local soft tissue infection. Left lower extremity: Decreased erythema and edema to the distal two thirds of the left leg and left foot. Weeping areas of the left lateral leg is epithelialized. Significant reduction in edema to the left leg and foot with light compression from Clay bandage over the past 24 hours. Very minimal drainage from the dorsal foot wound on Xeroform dressing. Patient no longer has any maceration of the interspaces and no open wounds. Open wound to the dorsal aspect of the foot with slough tissue overlying mixed granular and fibrotic wound bed limited to breakdown of skin. Results & Data Results & Data Vital Signs (Past 12 Hours) Vital Signs Temp Pulse Pulse Pulse Resp BP Pulse Ox 06/21/25 11:43 36.6 C 99 H 18 126/80 95 06/21/25 11:05 84 06/21/25 10:37 06/21/25 07:46 36.6 C 93 H 17 135/78 92 06/21/25 02:30 36.6 C 87 18 132/76 94 O2 Del Method 06/21/25 11:43 Room Air 06/21/25 11:05 06/21/25 10:37 Room Air 06/21/25 07:46 Room Air 06/21/25 02:30 Room Air Coding Level of Care Code 34344 SUB INP/OBS CARE 2/35MIN Diagnoses Unspecified open wound, left foot, subsequent encounter S91.302D Lymphedema I89.0 Left leg cellulitis L03.116 Leg pain, left M79.605 Cellulitis L03.116 Laterality: left Site of cellulitis: extremity Site of cellulitis of extremity: lower extremity (5) Cellulitis Laterality: left Site of cellulitis: extremity Site of cellulitis of extremity: lower extremity Qualified Code(s): L03.116 - Cellulitis of left lower limb
--- NOTE | 2025-06-21 15:44 | Hospitalist Progress Note ---
Date of Service June 21, 2025 Assessment & Plan (1) Left leg cellulitis: (2) Venous ulcers of both lower extremities: (3) Cerebral palsy: (4) Leg wound, left: Plan Krystle Scott is a 49 yo woman with PMH of chronic lymphedema, MS (on injection), cerebral palsy, hypokalemia, lyme disease. she's been following with wound care for her lymphedema and s/p debridement in April. she was recommended f/u with Dr Ulloa for left GSV reflux. she's took bactrim for her left foot infection one weeks ago and continue to get worse. since 24-48 hours, her wound continue to get worse and went to ED on 06/19/2025 on physical exam, she's has significant swelling, erythema on the left leg into the knee, she s/p ceftriaxone and plan for IV cefazolin and IV vancomycin. her CT leg concern for osteomyelitis. CTA negative for PVD. she was started on cefazolin and vancomycin 1. acute left leg and left foot cellulitis 2. chronic lymphedema 3. acute maggot infection of left foot 4. hx of MS, wheelchair bound since 4-5 years ago 5. cerebral palsy 6. chronic hypokalemia 7. hx of lyme disease 8. ovarian cysts 1. acute left leg and left foot cellulitis CT sheppard concern for left foot osteomyelitis plan for MRI left foot ID and podiatry consulted cefaozlin and vancomycin. 2. chronic lymphadema plan for IV diuretics while she's here. wound care eval for dressing choice 3. acute maggot infection of left foot wound care evaluation 4. hx of MS, following neurologist, Dr. Sanaz Tam at [facility] ocrelizumab q6 months. she's on baclofen 10mg TID 5. chronic hypokalemia, kcl daily 6. recurrent UTI, she's on mybrtriq 50mg ER daily 7. HLD, lipitor 20mg qHS Admission and Anticipated Discharge Date Admission Date: June 19, 2025 Subjective her leg look much better with cefazolin meanwhile, she still has erythema in the foot and will need another 24 hours of IV cefazolin spoke with ID, Dr. Raisa Arteaga, plan for duricef 500 BID for another 10 days she can be dc home tomorrow. she will need to be provide with some of the dressing prior to discharge however, home services can only do dressing change 2-3 times per week and family will need to be involved with that Review of Systems Review of Systems: Constitutional: No Weight Change, No Fever, No Chills, No Night Sweats, No Fat igue, No Malaise Cardiovascular: No Chest Pain, No SOB, No PND, No Dyspnea on Exertion, No Orthopnea, No Claudication, No Edema, No Palpitations Respiratory: No Cough, No Sputum, No Wheezing, , No Dyspnea Gastrointestinal: No Nausea, No Vomiting, No Pain, No Heartburn, No Anorexia, No Dysphagia, No Hematochezia, No Melena Genitourinary: recurrent UTI. Musculoskeletal: + for lymphedema; + for left foot cellulitis. Neuro: + for MS; + for cerebral palsy; + for long staning leg weakness; spasticity; Psych: No Anxiety/Panic, No Depression, No Insomnia, No Personality Changes, No Delusions, No Rumination, Heme/Lymph: No Bruising, No Bleeding, No Transfusions History, No Lymphadenopathy Endocrine: no hx of diabetes. Physical Exam Physical Exam: VITALS: Reviewed. WEIGHT/BMI reviewed. GEN: non -Head: NC/AT; -Mouth and throat: MMM. Normal gums, muc nallely, palate,. Good dentition. NECK: Supple, with no masses. CV: RRR, no m/r/g. LUNGS: CTAB, no w/r/c. ABD: Soft, NT/ND, NBS, no masses or organomegaly. SKIN: erythema and edema in the leg much improved. foot: still has residual sweling and erythema; non-tender to palpation MSK: No deformities, Normal gait. NEURO: AAOx3; limited strength in the lower extremity Results & Data Results & Data Vital Signs (Past 12 Hours) Vital Signs Temp Pulse Pulse Pulse Resp BP Pulse Ox 06/21/25 15:17 95 H 06/21/25 11:43 36.6 C 99 H 18 126/80 95 06/21/25 11:05 84 06/21/25 10:37 06/21/25 07:46 36.6 C 93 H 17 135/78 92 O2 Del Method 06/21/25 15:17 06/21/25 11:43 Room Air 06/21/25 11:05 06/21/25 10:37 Room Air 06/21/25 07:46 Room Air PG Care Time/CCT Total # of Minutes Spent Total Time Spent with Patient: Total time spent is greater than 50% in coordination of care (as documented) at patient's floor/unit and/or counseling patient: Coding Level of Care Code 69641 SUB INP/OBS CARE 2/35MIN Diagnoses Left leg cellulitis L03.116 Venous ulcers of both lower extremities I83.019; I83.029; L97.919; L97.929 Cerebral palsy G80.9 Leg wound, left S81.802A Encounter type: initial encounter Time Spent (min) 35 (4) Leg wound, left Encounter type: initial encounter Qualified Code(s): S81.802A - Unspecified open wound, left lower leg, initial encounter
[2025-06-22 07:48] LABS: Hematocrit (blood only) 34.5 % (37.0-47.0); Hemoglobin 11.6 g/dl (12.0-16.0); Mean Corpuscular Hemoglobin 30.3 pg (25.0-34.0); Mean Corpuscular Volume 90.1 fL (80.0-100.0); Platelet Count 357 K/uL (130-400); RDW Standard Deviation 40.6 fL (36.4-46.3); Red Blood Count 3.83 M/uL (4.20-5.40); White Blood Count 6.03 K/ul (4.8-10.8)
[2025-06-22 07:55] VITALS: RESP 17; TEMP 97.9; O2SAT 93
[2025-06-22 08:05] LABS: Alanine Aminotransferase 4.0 U/L (7-52); Albumin Globulin Ratio 1.2 (0.9-2); Alkaline Phosphatase 70.0 U/L (34-104); Anion Gap 9.0 (3-11); Bilirubin,Total 0.4 mg/dl (0.2-1.0); Blood Urea Nitrogen 8.0 mg/dl (6-23); Calcium 8.7 mg/dl (8.6-10.3); Carbon Dioxide 27.0 mmol/L (21-32); Chloride 105.0 mmol/L (98-107); Creatinine Clr Calc Pharmacy 110.9 ml/min; Globulin 3.0 gm/dl (2.5-4.0); Glucose 98.0 mg/dl (70-99(Fasting)); Potassium 3.5 mmol/L (3.5-5.1); Sodium 141.0 mmol/L (136-145); Total Protein 6.5 gm/dl (6.0-8.3)
[2025-06-22] MEDS: FUROSEMIDE 40 MG/4 ML VIAL IV ONE (10:08)
[2025-06-22 11:51] VITALS: BP 133/77
[2025-06-22 14:54] VITALS: PULSE 75
--- NOTE | 2025-06-22 18:53 | Discharge Summary ---
Discharge Summary Date of Service June 22, 2025 Principal Dx & Hospital Course #1 = Principal Diagnosis (1) Left leg cellulitis: she's has lymphedema, MS with spasticity on balcofen and receiving injection, lyme disease she's been having worsening left leg and left foot infection, severe erythema and drainage and came here for evaluation she was started on cefazolin, IV lasix and her erythema improved she was then seen by podiatry, Dr. Lasha Moses and recommended following dressing change Left toes: Cleanse left toes with normal sterile saline clean with 4 x 4 gauze and dressed with Aquacel Ag between the digits. Left dorsal foot: Cleanse with normal sterile saline dry, apply Silvadene followed by Xeroform, ABD pad. Left distal leg: Apply Xeroform to any areas of weeping followed by ABD pad. Dressed the lower extremity with Ashley from the base of the toes to the proximal calf. Apply 4 inch Clay to the foot and ankle and a 6 inch Clay from the ankle to the calf. her cellulitis continue to improved she was dc home with duricef 500mg BID for 10 days. she may need to increase her lasix from once a day to twice a day PRN if her edema persist whiel she was in the hospital, she's continue to has spasticity on baclofen 10mg TID, we increased her baclofen 10mg from TID to QID and she responded well no sedation (2) Venous ulcers of both lower extremities: (3) Cerebral palsy: (4) Leg wound, left: Plan Krystle Scott is a 49 yo woman with PMH of chronic lymphedema, MS (on injection), cerebral palsy, hypokalemia, lyme disease. she's been following with wound care for her lymphedema and s/p debridement in April. she was recommended f/u with Dr Ulloa for left GSV reflux. she's took bactrim for her left foot infection one weeks ago and continue to get worse. since 24-48 hours, her wound continue to get worse and went to ED on 06/19/2025 on physical exam, she's has significant swelling, erythema on the left leg into the knee, she s/p ceftriaxone and plan for IV cefazolin and IV vancomycin. her CT leg concern for osteomyelitis. CTA negative for PVD. she was started on cefazolin and vancomycin 1. acute left leg and left foot cellulitis 2. chronic lymphedema 3. acute maggot infection of left foot 4. hx of MS, wheelchair bound since 4-5 years ago 5. cerebral palsy 6. chronic hypokalemia 7. hx of lyme disease 8. ovarian cysts 1. acute left leg and left foot cellulitis CT sheppard concern for left foot osteomyelitis plan for MRI left foot ID and podiatry consulted cefaozlin and vancomycin. 2. chronic lymphadema plan for IV diuretics while she's here. wound care eval for dressing choice 3. acute maggot infection of left foot wound care evaluation 4. hx of MS, following neurologist, Dr. Sanaz Tam at [facility] ocrelizualb q6 months. she's on baclofen 10mg TID 5. chronic hypokalemia, kcl daily 6. recurrent UTI, she's on mybrtriq 50mg ER daily 7. HLD, lipitor 20mg qHS Admission HPI Per Admitting Provider Krystle Scott is a 49 yo woman with PMH of lymphadema, MS, cerebral palsy, chronic spasticity, hypokalemia. lyme disease She follow with Dr. Sanaz Tam at [facility] for her MS, and on ocrelizumab every 6 months. however, she's been bedbound since 5 years ago she's was following with our wound care clinics for her venous ulcer. and in april, s/p debridement, at that time, leg was dressed with visco paste kerlix and 2 layer tubigrip and aquacel ag to open ulceration. per progress note, she's has reflux studies completed and thos show left GSV amenable to ablation. since one week ago, she's been startede bactrim for her foot infection but no improvement. she's started noticing oozing discharge and worsening erythema and swelling to her left foot. she's was started by ED and s/p IV ceftriaxone. also concern about maggot coming out from her left foot. she will need inpatient admission for IV cefazolin, wound care. Discharge Exam VITALS: Reviewed. WEIGHT/BMI reviewed. GEN: Healthy appearing, well-developed, NAD. -Head: NC/AT; NECK: Supple, with no masses. CV: RRR, no m/r/g. LUNGS: CTAB, no w/r/c. ABD: Soft, NT/ND, NBS, no masses or organomegaly. : N/A SKIN: left leg and left foot erythema and edema much improved; no discharge; non-tender to palpation; coverd by dressing EXT: No clubbing, cyanosis, or edema. NEURO: AAOx3; spasticity Discharge Plan Discharge Items Patient Disposition: Home - Home Health Services Reason For Visit: LEFT LEG CELLULITIS, LYMPHADEMA, MAGGOT Discharge Diagnosis: left leg and left foot cellulitis lymphedema Condition on Discharge: Fair Activity: Resume your previous activity Lifting: Gradually increase as tolerated Non-emergency contact: Primary Care Provider and Neurologist Call non-emergency contact if: your pain is concerning for you, your rectal temperature is above 100.4, your wound has increased redness, your wound has increased drainage and your wound pain has increased Follow-up/Referrals: Blake Shah MD [Primary Care Provider] - (PLEASE CALL YOUR PRIMARY CARE PROVIDER TO SCHEDULE A HOSPITAL FOLLOW-UP APPOINTMENT WITHIN 7-10 DAYS) Diet: Regular Addtl Attending Provider Instructions: you need to follow up with Dr. Moses (locomotive crane operator, foot doctor) you will need to see neurologist Pending Studies at Discharge: Yes Stand-Alone Forms: [employer], Smoking Cessation Medications and DC Order Prescriptions: New silver sulfadiazine 1 % Cream 1 applic EXT DAILY 30 Days Qty: 15 0RF cefadroxil 500 mg capsule 500 mg PO BID 10 Days Qty: 20 0RF Continued cholecalciferol (vitamin D3) 125 mcg (5,000 unit) capsule 125 mcg PO DAILY furosemide 40 mg tablet 40 mg PO DAILY atorvastatin 20 mg tablet 20 mg PO DAILY potassium chloride [Klor-Con M20] 20 mEq tablet,ER particles/crystals 20 meq PO DAILY baclofen 10 mg tablet 10 mg PO TID PRN (Reason: Pain) mirabegron 50 mg tablet extended release 24 hr 50 mg PO DAILY Discharge Orders: Discharge Order (Routine); Ordered 06/22/25 Ordered By: Celina Snider/Other Patient Handouts: Dressing Change Steps, Wound Dressing Change Steps, ED Cellulitis Admission Data Admit Date/Time: 06/19/25 18:27 Attending Provider: Celina More Admit Provider: Celina More Primary Care Provider: Blake Shah Other Providers: Celina More; Lasha Moses; [facility],Home Healthcare Other Interventions: Discharge Summary Assessment (RN) Last Done: 06/22/25 11:50 Hospital Stay Data Consultations 06/19/25 17:57 ED Decision to Admit Stat 06/20/25 07:33 Consult Infectious Diseases Routine 06/20/25 07:39 Consult Podiatry Routine Diagnostic Imagining Performed 06/19/25 18:25 CT leg [CT tib/fib RT w con] Stat 06/19/25 18:26 CT foot LT w con Stat CTA abd aorta runof w con [CT ang AA runof w inc wo ifdon] Stat 06/20/25 08:45 MRI Foot [MR foot LT wo/w con] Routine Pending Results Patient Have Any Pending Studies at Discharge: Yes Discharge Instructions Given to Patient (Per Discharging Provider) you need to follow up with Dr. Moses (locomotive crane operator, foot doctor) you will need to see neurologist Total Time Total Time Spent Total Time Spent (In Minutes): 25 Coding Level of Care Code 07736 IN/OBS DISCH 30 MIN/LESS Diagnoses Left leg cellulitis L03.116 Venous ulcers of both lower extremities I83.019; I83.029; L97.919; L97.929 Cerebral palsy G80.9 Leg wound, left S81.802A Encounter type: initial encounter Time Spent (min) 25
== END 2025-06-22 15:01 | disposition home health service (06) | DRG 300 ==
LOC: ED 14:14 → EDINP 18:27 → INTOOBSV 18:27 → 2S 19:12 → 2N 06-21 22:41